=== PATIENT | female | born 1940 | race Caucasian/White ===

== ENCOUNTER 2018-09-12 11:19 | Inpatient (IN) ==
[2018-09-12] MEDS ORDERED: ZOFRAN IV ONE (11:42)
[2018-09-12] MEDS ORDERED: NS 1,000 ML IV ONE ×2 (11:42→16:53)
[2018-09-12] MEDS ORDERED: MORPHINE IV ONE (11:42)
[2018-09-12] MEDS ORDERED: MORPHINE ONE (11:44)
[2018-09-12] MEDS ORDERED: ZOFRAN ONE (11:44)
--- NOTE | 2018-09-12 12:45 | Diag Imaging Result Doc PS360 ---
EXAM: XRAY PELVIS W/HIP 2-3VW RT - 09/12/2018 HISTORY: fall TECHNIQUE: Right hip and pelvis three views COMPARISON: None. FINDINGS: There is an intertrochanteric fracture of the right femur with varus deformity. There is no other fracture or dislocation identified. IMPRESSION: Intertrochanteric fracture of right femur with varus deformity. Electronically signed by Neto Lund 09/12/2018 12:42 PM
--- NOTE | 2018-09-12 12:48 | Diag Imaging Result Doc PS360 ---
EXAM: CHEST-PORTABLE - 09/12/2018 HISTORY: hip fracture TECHNIQUE: Portable chest COMPARISON: 07/10/2018 FINDINGS: There is stable cardiomegaly. There is mild prominence of infrahilar markings on the left, but these could be exaggerated by mild skinfold artifact at the left base. The lungs otherwise appear clear. There is no pleural effusion or pneumothorax identified. IMPRESSION: Stable cardiomegaly. Mild prominence of left infrahilar markings. Electronically signed by Neto Lund 09/12/2018 12:46 PM
--- NOTE | 2018-09-12 13:12 | Diag Imaging Result Doc PS360 ---
EXAM: CT HEAD/C-SPINE W/O CONTRAST INDICATION: head injury/pain TECHNIQUE: This exam was performed using automated exposure control, adjustment of mA or kV according to patient size, and/or use of iterative reconstruction technique. COMPARISON: None. FINDINGS: Head: There is no definite acute infarct given the limited sensitivity of CT versus MRI. There is no discrete intracranial mass, mass effect, or intracranial hemorrhage. The surrounding soft tissues are essentially unremarkable. The calvaria is intact. C-spine: There is multilevel moderate to advanced facet arthropathy. There is milder endplate degenerative arthropathy at several levels. There is mild anterolisthesis of C4 on C5 related to facet arthropathy. Otherwise, there is no discrete fracture, acute subluxation, or intrinsic osseous lesion. There is a low dense right thyroid lobe nodule measuring 2.1 x 1.5 cm. Consider nonemergent follow-up with ultrasound. Surrounding soft tissues are essentially unremarkable, otherwise. IMPRESSION: 1.No evidence of acute intracranial pathology. 2.Multilevel degenerative arthropathy but no evidence of fracture or other definite acute C-spine injury. Electronically signed by Waylon Greene 09/12/2018 1:09 PM
[2018-09-12 13:50] LABS: BASO# 0.02 X1000 (0.0-0.2); BASO% 0.2 % (0.0-0.8); EOS# 0.04 X1000 (0.0-0.7); EOS% 0.5 % (0.0-10.0); HEMATOCRIT 36.8 % (37.0-47.0); HEMOGLOBIN 11.7 g/dL (12.0-16.0); IMM GRAN# 0.02 X1000 (0.0-0.04); IMM GRAN% 0.2 % (0.0-0.5); LYMPH# 0.73 X1000 (1.2-3.4); LYMPH% 8.7 % (20.5-51.1); MCH 30.6 PG (27-31); MCHC 31.8 g/dL (33-37); MCV 96.3 FL (81-99); MONO# 0.56 X1000 (0.11-0.59); MONO% 6.7 % (1.7-9.3); MPV 11.7 FL (7.4-10.4); NEUT# 7.04 X1000 (1.4-6.5); NEUT% 83.7 % (42.2-75.2); PLT 201 X1000 (130-400); RBC 3.82 XMIL (4.2-5.4); RDW 15.1 % (11.5-14.5); WBC 8.41 X1000 (4.8-10.8)
[2018-09-12 14:00] LABS: INR 1.75; PROTIME 21.8 Seconds (11.0-16.0)
[2018-09-12 14:01] LABS: PTT 37.8 Seconds (22.3-41.8)
[2018-09-12 14:02] LABS: URINE SOURCE CATH
[2018-09-12 14:07] LABS: BILIRUBIN URINE NEGATIVE (NEGATIVE); BLOOD URINE NEGATIVE (NEGATIVE); COLOR YELLOW; GLUCOSE URINE NEGATIVE (NEGATIVE); KETONE URINE NEGATIVE (NEGATIVE); LEUKOCYTES URINE NEGATIVE (NEGATIVE); NITRITE URINE NEGATIVE (NEGATIVE); PROTEIN URINE TRACE mg/dL (NEGATIVE); TURBIDITY URINE CLEAR (CLEAR); UR EPITHELIAL CELLS <10 /HPF (<10); URINE BACTERIA NEGATIVE /HPF; URINE RBC <10 /HPF (<10); URINE WBC <10 /HPF (<10); UROBILINOGEN URINE 2 mg/dL (NORMAL)
[2018-09-12] MEDS: MORPHINE IV PRN ×3 (14:11→18:19)
--- NOTE | 2018-09-12 14:36 | EKG Report ---
Test Performed on : 09/12/2018 1:58:51 PM Test Reason : pre-op hip fracture Blood Pressure : / mmHG Vent. Rate : 059 BPM Atrial Rate : 059 BPM P-R Int : 178 ms QRS Dur : 092 ms QT Int : 444 ms P-R-T Axes : -03 -15 027 degrees QTc Int : 439 ms Sinus bradycardia. with premature atrial complexes. Nonspecific ST abnormality Abnormal ECG When compared with ECG of 16-JUL-2014 21:19, premature atrial complexes. are now present Nonspecific T wave abnormality has replaced inverted T waves in Inferior leads T wave inversion no longer evident in Anterior leads T wave amplitude has decreased in Lateral leads Unconfirmed Result
[2018-09-12 14:48] LABS: ALB/GLOB RATIO 1.4; ALBUMIN 3.9 g/dL (3.5-5.0); CALCIUM 9.4 mg/dL (8.8-10.2); MAGNESIUM 2.1 mg/dL (1.5-2.7); POTASSIUM 4.2 mmol/L (3.5-5.1); TOTAL BILIRUBIN 0.5 mg/dL (0.20-1.00); TOTAL PROTEIN 6.6 g/dL (6.3-8.3)
--- NOTE | 2018-09-12 14:51 | PROVIDER DOCUMENTATION ---
This chart was entered by Paz Greene Scribe, acting as scribe for José Luis Alfred MD. 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 pt fell 2 wks ago on bilat arms but didn't receive tx. pt denies illness and loc. pt has hx of afib and takes elaquis. pt followed by Dr. Orta, Dr. Corrigan, and Dr. Pan. Quality of Pain: reports: aching Severity in ED: mild Onset/Duration: just prior to arrival Timing: still present Any recent injury?: Yes (fell 2 wks ago ) Locality of Occurance: Other (daughters house) - FALL INJURY Location of Pain/Injury: reports: lower body (rt hip) Review of Systems - Adult - REVIEW OF SYSTEMS - ADULT Constitutional: reports: no symptoms reported. denies: fever, fatique, night sweats Eyes: reports: no symptoms reported Ears, Nose, Mouth & Throat: reports: no symptoms reported Cardiovascular: reports: no symptoms reported. denies: chest pain, poor circulation, syncope Respiratory: reports: no symptoms reported. denies: pleurisy, shortness of breath, wheezing Gastrointestinal: reports: no symptoms reported. denies: abdominal pain, diarrhea, nausea, vomiting Genitourinary: reports: no symptoms reported Musculoskeletal: reports: see HPI, joint pain (rt hip). 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 denies: dizziness/vertigo, headache/migraines, syncope Psychiatric: reports: no symptoms reported Endocrine: reports: no symptoms reported Hematologic/Lymphatic: reports: no symptoms reported Allergic/Immunologic: reports: no symptoms reported All Other Systems: Reviewed and Negative Past History - Adult - PAST MEDICAL HISTORY-ADULT Review of Records: reports: Old Records Reviewed, Nursing Assessment Review, Medications Reviewed, Social history reviewed & non-contributory. Major Childhood Illnesses: reports: denies history Cardiovascular: reports: congenital heart disease (atrial defect), HTN Respiratory: reports: denies history Gastrointestinal: reports: GERD Obstetrical/Gynecological: reports: denies history Genitourinary: reports: kidney disease (CRI) Musculoskeletal: reports: arthritis Neurological: reports: denies history Endocrine/Immune: reports: denies history Other Conditions: reports: denies history - PRIOR SURGERIES/PROCEDURES Surgical/Procedure History: reports: EGD, joint replacement - IMMUNIZATION STATUS Childhood Immunizations: See Nurse Assessment Flu Vaccine: See Nurse Assessment - FAMILY HISTORY Family History: reviewed, not pertinent - SOCIAL HISTORY Smoking: non-smoker Substance Use: none/never Physical Exam-Injury Related - Physical Exam-Injury Related Initial Vital Signs Reviewed: Yes General Appearance: appears well, alert, mild distress. negative: slow to respond, obtunded, combative Immobilization?: negative: backboard, C-collar Eyes: PERRL/EOMI, pink conjunctivae Head, Ears, Nose, Mouth & Throat: normocephalic/atraumatic, moist mucous membranes, normal ENT inspection Neck: non-tender, full range of motion, supple, normal inspection Respiratory: chest non-tender, lungs clear, normal breath sounds Cardiovascular: normal peripheral pulses, regular rate, rhythm Chest/Breast: deferred Peripheral Pulses: radial (R): 2+, radial (L): 2+ Abdominal Exam: normal bowel sounds, non tender, soft Female Genitalia/Pelvic Exam: deferred Rectal Exam: deferred Hemoccult Exam: deferred Lymphatic: no adenopathy Back Exam: normal inspection, no CVA tenderness, no vertebral tenderness. negative: CVA tenderness, decreased range of motion, ecchymosis Extremity: tenderness (rt hip), other (pt resists rt hip movement.). negative: normal range of motion, non-tender, deformity, erythema, inflammation Integumentary: normal color, warm/dry, other (pt has older bilat forearm and wrist bruising). negative: swelling, tenderness, warm, abrasion, laceration Neurologic: grossly normal, no motor/sensory deficits Psych/Mental Status: normal mood/affect, normal thought content, normal thought process, oriented x 3 - Glascow Coma Score Best Eye Response ([place]): (4) open spontaneously Best Verbal Response ([place]): (5) oriented Best Motor Response ([place]): (6) obeys commands Thao Total: 15 Progress - PLAN OF CARE/RESULTS Progress/Plan/Lab Results: Vital Signs - 8 hr 09/12/18 12:02 Temperature 97.8 F Pulse Rate 63 Respiratory Rate 20 Blood Pressure 147/67 O2 Sat by Pulse Oximetry 99 Laboratory Results - last 24 hr 09/12/18 09/12/18 09/12/18 13:07 13:07 13:53 WBC 8.41 RBC 3.82 L Hgb 11.7 L Hct 36.8 L MCV 96.3 MCH 30.6 MCHC 31.8 L RDW Std Deviation 15.1 H Plt Count 201 MPV 11.7 H Immature Gran % (Auto) 0.2 Neut % (Auto) 83.7 H Lymph % (Auto) 8.7 L [place] % (Auto) 6.7 Eos % (Auto) 0.5 Baso % (Auto) 0.2 Immature Gran # (Auto) 0.02 Neut # (Auto) 7.04 H Lymph # (Auto) 0.73 L [place] # (Auto) 0.56 Eos # (Auto) 0.04 Baso # (Auto) 0.02 PT 21.8 H INR 1.75 PTT (Actin FS) 37.8 Sodium Potassium Chloride Carbon Dioxide Anion Gap BUN Creatinine Estimated GFR/1.73 m2 BUN/Creatinine Ratio Glucose Calculated Osmolality Calcium Magnesium Total Bilirubin AST ALT Alkaline Phosphatase Creatine Kinase Total Protein Albumin Globulin Albumin/Globulin Ratio Lipase Urine Source CATH Urine Color YELLOW Urine Turbidity CLEAR Urine pH 5.0 Ur Specific [place] 1.020 Urine Protein TRACE A Ur Glucose (Stick) NEGATIVE Ur Ketones (Stick) NEGATIVE Urine Blood NEGATIVE Urine Nitrite NEGATIVE Urine Bilirubin NEGATIVE Urobilinogen Dipstick 2 A Urine Leukocytes NEGATIVE Urine WBC (Auto) <10 Urine RBC (Auto) <10 U Epithel Cells (Auto) <10 Urine Bacteria (Auto) NEGATIVE 09/12/18 14:11 WBC RBC Hgb Hct MCV MCH MCHC RDW Std Deviation Plt Count MPV Immature Gran % (Auto) Neut % (Auto) Lymph % (Auto) [place] % (Auto) Eos % (Auto) Baso % (Auto) Immature Gran # (Auto) Neut # (Auto) Lymph # (Auto) [place] # (Auto) Eos # (Auto) Baso # (Auto) PT INR PTT (Actin FS) Sodium 141 Potassium 4.2 Chloride 107 Carbon Dioxide 23 L Anion Gap 11 BUN 22 Creatinine 1.0 H Estimated GFR/1.73 m2 54 BUN/Creatinine Ratio 22 Glucose 123 H Calculated Osmolality 286 Calcium 9.4 Magnesium 2.1 Total Bilirubin 0.50 AST 15 ALT 15 Alkaline Phosphatase 55 Creatine Kinase 39 Total Protein 6.6 Albumin 3.9 Globulin 2.7 Albumin/Globulin Ratio 1.4 Lipase 187 H Urine Source Urine Color Urine Turbidity Urine pH Ur Specific [place] Urine Protein Ur Glucose (Stick) Ur Ketones (Stick) Urine Blood Urine Nitrite Urine Bilirubin Urobilinogen Dipstick Urine Leukocytes Urine WBC (Auto) Urine RBC (Auto) U Epithel Cells (Auto) Urine Bacteria (Auto) Orders Category Date Time Status [place] Insertion ORDERED Care 09/12/18 11:42 Active Nursing- Obtain EKG once Care 09/12/18 11:42 Active Saline Loc NOW Care 09/12/18 11:42 Active cardiac diet [Heart Healthy Diet] Diet 09/12/18 13:06 Active CHEST-PORTABLE [RAD] Stat Exams 09/12/18 11:[address] HEAD/C-SPINE W/O CONTRAST [CT] Stat Exams 09/12/18 11:43 Completed XRAY PELVIS W/HIP 2-3VW RT [RAD] Stat Exams 09/12/18 11:44 Completed CBC WITH ELECTRONIC DIFF [HEME] Stat Lab 09/12/18 13:07 Completed CK PROFILE [SP CHEM] Stat Lab 09/12/18 14:11 Completed COMPREHENSIVE METABOLIC PANEL [CHEM] Stat Lab 09/12/18 14:11 Completed LIPASE [CHEM] Stat Lab 09/12/18 14:11 Completed MAGNESIUM [CHEM] Stat Lab 09/12/18 14:11 Completed PRO B-NATRIURETIC PEPTIDE Stat Lab 09/12/18 14:11 Received PROTIME WITH INR [COAG] Stat Lab 09/12/18 13:07 Completed PTT [COAG] Stat Lab 09/12/18 13:07 Completed TROPONIN T Stat Lab 09/12/18 14:11 Received TYPE & SCREEN [BBK] Stat Lab 09/12/18 13:07 Received URINALYSIS W/POSS RFLX CULT [URINALYSIS] Stat Lab 09/12/18 13:53 Completed 0.9% Sodium Chloride Inj [Ns] 1,000 ml Med 09/12/18 11:42 Active IV 75 mls/hr Morphine Med 09/12/18 13:06 Active 2 mg IV Q2H PRN PRN Morphine Med 09/12/18 11:44 Discontinued 4 mg .ROUTE .STK-MED ONE Morphine Med 09/12/18 11:42 Discontinued 4 mg IV NOW ONE Ondansetron [Zofran] Med 09/12/18 11:44 Discontinued 4 mg .ROUTE .STK-MED ONE Ondansetron [Zofran] Med 09/12/18 11:42 Discontinued 4 mg IV NOW ONE EKG [EKG] Stat Ther 09/12/18 11:42 Draft Result Diagrams: 09/12/18 13:07 09/12/18 14:11 - REASSESSMENT Reassessment #1 Time Reassessed: 13:07 Status: improving (less pain with morphine. X-Ray results discussed. Will admit to hospitalist once labs are resulted.) - EKG 1 Time of EKG reading by physician:: 14:28 EKG Read and Signed by:: José Luis Alfred EKG Interpretation (*Must complete 3 of following elements*): Abnormal Rate: 59 Rhythm: NSR, bradycardic [place]: left QRS: other (early transition) [place] Interval: normal ST Wave: non-specific ST changes - XRAY 1 XRAY: Right XRAY Study: Pelvis, Hip ( EXAM: XRAY PELVIS W/HIP 2-3VW RT - 09/12/2018 HISTORY: fall TECHNIQUE: Right hip and pelvis three views COMPARISON: None. FINDINGS: There is an intertrochanteric fracture of the right femur with varus deformity. There is no other fracture or dislocation identified. IMPRESSION: Intertrochanteric fracture of right femur with varus deformity. Electronically signed by [employer] 09/12/2018 12:42 PM) Impression: Abnormal Comparison with other Films: no prior study 2 XRAY: Bilateral XRAY Study: Chest ( EXAM: CHEST-PORTABLE - 09/12/2018 HISTORY: hip fracture TECHNIQUE: Portable chest COMPARISON: 07/10/2018 FINDINGS: There is stable cardiomegaly. There is mild prominence of infrahilar markings on the left, but these could be exaggerated by mild skinfold artifact at the left base. The lungs otherwise appear clear. There is no pleural effusion or pneumothorax identified. IMPRESSION: Stable cardiomegaly. Mild prominence of left infrahilar markings. Electronically signed by [employer] 09/12/2018 12:46 PM) Impression: Abnormal Comparison with other Films: no changes - CONSULTS/PCP/HOSPITALIST Notification #1 *Consult/PCP/Hospitalist*: Dr. almendarez Time Discussed: 13:03 Reason/Comments: Dr. almendarez can't operate on pt until saturday due to pt on elaquis #2 Consult: ALBERTA Olvera Time Discussed: 14:51 (admit Alvarez) Consult Disposition: Will see in ED, Admit Departure - Departure Date of Disposition Decision: 09/12/18 Time of Disposition Decision: 14:51 DIAGNOSIS: Anticoagulant long-term use Closed intertrochanteric fracture of right femur Qualifiers: Encounter type: initial encounter Fracture alignment: displaced Qualified Code(s): S72.141A - Displaced intertrochanteric fracture of right femur, initial encounter for closed fracture Fall as cause of accidental injury at home as place of occurrence Qualifiers: Encounter type: initial encounter Qualified Code(s): W19.XXXA - Unspecified fall, initial encounter; Y92.009 - Unspecified place in unspecified non-institutional (private) residence as the place of occurrence of the external cause Disposition: ADMITTED INPATIENT 09 Certified Medical Emergency: Emergent Condition: Fair Referrals and Follow-Ups: Heather Orta MD [Primary Care Provider] - - Critical Care Note This patient required my direct & personal management of CC.: No Attestation - Physician/ SHARRON Attestation Patient care was provided by Advanced Practice Provider:: No The physician spent face to face time with patient:: Yes Advanced Practice Provider documentation review:: Supervising physician onsite and consulted in the evaluation and care of this patient. The physician did have a face to face encounter with the patient. This chart was documented by the indicated scribe, (Paz Greene Scribe) and accurately reflects the services I performed and decisions made by me, José Luis Alfred MD, as attested by the provider's signature.
--- NOTE | 2018-09-12 15:53 | HISTORY AND PHYSICAL ---
PRIMARY CARE PHYSICIAN: Dr. Heather Orta. CHIEF COMPLAINT: Right hip pain after a fall at home. HISTORY OF PRESENTING ILLNESS: This is a 78-year-old female who presents to [facility] with complaints of right hip pain after she tripped over a couch at her daughter's house. She also fell approximately 2 weeks ago on bilateral arms, but did not receive any treatment. Workup in the emergency room showed a right hip and pelvic x-ray with an intertrochanteric fracture of the right femur with varus deformity. Chest x-ray showed stable cardiomegaly, mild prominence of left infrahilar markings. CT of the head and cervical spine showed no evidence of acute intracranial pathology and multilevel degenerative arthropathy, but no evidence of acute fracture or other definite C-spine injury. So, she will be admitted for further evaluation and treatment. It is noted that she is on Eliquis for atrial fibrillation and we will hold that and consult Orthopedics. PAST MEDICAL HISTORY: Hypertension, congenital heart disease with an atrial defect, GERD, chronic kidney disease and arthritis. PAST SURGICAL HISTORY: An EGD and a joint replacement. FAMILY HISTORY: Reviewed and noncontributory. SOCIAL HISTORY: She currently lives with family. Denied any tobacco, alcohol or illicit drug use. ALLERGIES: Codeine. HOME MEDICATIONS: She takes Cordarone 200 mg p.o. daily, Norvasc 10 mg p.o. daily, Prinivil 20 mg p.o. daily, pravastatin 20 mg p.o. at bedtime, and we will hold her Eliquis 5 mg p.o. b.i.d. LABORATORY DATA: Showed a white blood cell count of 8.41, hemoglobin 11.7, hematocrit 36.8, platelets 201,000. PT and INR of 21.8 and 1.75. Sodium 141, potassium 4.2 chloride 107, CO2 23, BUN of 22, creatinine 1, magnesium 2.1, lipase 187. Urinalysis negative. Right hip and pelvic three-view x-ray showed an intertrochanteric fracture of the right femur with varus deformity. Head and cervical spine CT showed no evidence of acute intracranial pathology. Multilevel degenerative arthropathy, but no evidence of fracture or other definite acute cervical spine injury. Chest x-ray shows stable cardiomegaly. Mild prominence of left infrahilar markings. EKG showed sinus bradycardia with premature atrial complexes at 59. REVIEW OF SYSTEMS: She denied any fever, chills, blurred vision, dizziness. She denied any chest pain, coughing, shortness of breath. She denied any abdominal pain, constipation, diarrhea, burning or hurting with urination. She is positive for right hip pain status post her fall. PHYSICAL EXAMINATION: VITAL SIGNS: On arrival, she had a temperature of 97.8, pulse 63, respirations 20, blood pressure 147/67. Satting 99% on room air. GENERAL: This is a 78-year-old female who is lying in the bed. Answers questions appropriately. HEENT: Normocephalic, atraumatic. Normal ENT inspection. Oropharynx and nares are clear. EYES: Pupils are equal, round and reactive to light and accommodation. Extraocular movements are intact. NECK: Normal inspection. Normal range of motion. LUNGS: Clear to auscultation bilaterally with equal lung expansion and chest wall movement. HEART: With regular rate and rhythm. No murmurs, rubs or gallops. ABDOMEN: Soft, nontender, nondistended. Bowel sounds are present x 4 quadrants. MUSCULOSKELETAL: She had 5/5 strength to bilateral upper extremities and her left lower extremity unable to move her right extremity at this time due to her right hip fracture. NEUROLOGIC: The cranial nerves 2-12 appear grossly intact. ASSESSMENT: 1. Right intertrochanteric hip fracture. 2. Hypertension. 3. Gastroesophageal reflux disease. 4. An elevated lipase. PLAN: She is being admitted to the surgical unit, placed on telemetry, consulting Ortho. Again, will hold her Eliquis for her upcoming surgery. Placed on telemetry. Morphine 2 mg IV q.2 hours p.r.n. Continue her other home medications as previously identified. Will check a CBC and a BMP. I think the elevated lipase is an incidental finding, but I am going to discuss that with Attending for further recommendations. Dictated by ALBERTA Morrison for Lee Lerma MD cc: ALBERTA Morrison MD Marlin D. Gill, MD
[2018-09-12] MEDS: ZOFRAN IV PRN ×2 (17:14→22:19)
--- NOTE | 2018-09-12 18:12 | HISTORY AND PHYSICAL ---
This is a [id number] encounter note with May Champagne. Patient fell at home. She did not pass out. She is a 78-year-old female with history of hypertension, dyslipidemia, atrial fibrillation. She is on Eliquis chronically. She even took her dose this morning. She fell, sustained injury to her right hip, right hip on exam is externally rotated and foreshortened consistent with a right hip fracture. Her x-ray shows a right hip fracture looks like displaced intertrochanteric fracture of the right femur. The patient will be admitted for right hip fracture. Dr. Medina was consulted and because of her Eliquis that will delay surgery at least for a couple days. We will continue to follow. DISPOSITION: Pending her clinical status. She does have a mild elevation in her lipase. Denies abdominal pain, liver issues. She is on amiodarone and pravastatin. We will monitor labs and check an ultrasound and follow. cc: Heather Orta MD
[2018-09-12] MEDS: TYLENOL PO PRN (22:16)
[2018-09-12] MEDS: PRAVACHOL PO SCH (22:16)
[2018-09-13] MEDS: MORPHINE IV PRN ×3 (04:20→22:12)
[2018-09-13] MEDS: ZOFRAN IV PRN ×2 (04:20→22:11)
[2018-09-13 06:14] LABS: BASO# 0.01 X1000 (0.0-0.2); BASO% 0.1 % (0.0-0.8); EOS# 0.09 X1000 (0.0-0.7); EOS% 1.2 % (0.0-10.0); HEMATOCRIT 35.4 % (37.0-47.0); HEMOGLOBIN 10.9 g/dL (12.0-16.0); IMM GRAN# 0.02 X1000 (0.0-0.04); IMM GRAN% 0.3 % (0.0-0.5); LYMPH# 0.72 X1000 (1.2-3.4); LYMPH% 9.4 % (20.5-51.1); MCH 30.2 PG (27-31); MCHC 30.8 g/dL (33-37); MCV 98.1 FL (81-99); MONO# 0.89 X1000 (0.11-0.59); MONO% 11.7 % (1.7-9.3); MPV 10.6 FL (7.4-10.4); NEUT% 77.3 % (42.2-75.2); PLT 224 X1000 (130-400); RBC 3.61 XMIL (4.2-5.4); RDW 15.2 % (11.5-14.5); WBC 7.63 X1000 (4.8-10.8)
[2018-09-13 06:38] LABS: ALB/GLOB RATIO 1.5; ALBUMIN 3.8 g/dL (3.5-5.0); AMYLASE 929 U/L (20-200); CALCIUM 9.2 mg/dL (8.8-10.2); DIRECT BILIRUBIN 0.1 mg/dL (0.00-0.20); POTASSIUM 4.4 mmol/L (3.5-5.1); TOTAL BILIRUBIN 0.64 mg/dL (0.20-1.00); TOTAL PROTEIN 6.4 g/dL (6.3-8.3)
[2018-09-13 06:50] LABS: LIPASE 841 U/L (13-60)
--- NOTE | 2018-09-13 07:12 | ORTHOPAEDICS CONSULTATION ---
DATE: 09/13/2018 CHIEF COMPLAINT: Hip pain. HISTORY OF PRESENT ILLNESS: Ms. Roseline Kirk is a 78-year-old female, who presented to the emergency department yesterday. She was diagnosed with a right intertrochanteric hip fracture. She was admitted per the hospitalist service. She unfortunately fell yesterday and was unable to bear weight on the right lower extremity. Most of her pain is at the hip, does tend to radiate down the leg a little bit. She denies any pain in bilateral upper extremities or the left lower extremity. PAST MEDICAL HISTORY: Hypertension. Reflux. Kidney disease. PAST SURGICAL HISTORY: EGD. FAMILY HISTORY: Negative for any anesthesia related events. SOCIAL HISTORY: She lives with her family. She denies alcohol or tobacco use. ALLERGIES: Codeine. MEDICATIONS: Per the medical record. REVIEW OF SYSTEMS: Positive for this right hip pain. All other systems are essentially negative. PHYSICAL EXAMINATION: General: An elderly female lying in bed. She is in no acute distress this morning. HEENT/Neck: Normocephalic, atraumatic. Respirations: Nonlabored breathing. Cardiovascular: Regular pulse. Abdomen: Nondistended. Extremities: Right lower extremity exam, she has tenderness to palpation of the right hip. The right hip was marked as the correct surgical site. She has good dorsiflexion and plantarflexion of the toes. She has good sensation to light touch to the toes and good capillary refill to all the toes. RADIOGRAPHS: Several views of the right hip were reviewed, which show a right intertrochanteric hip fracture with a little bit of displacement. ASSESSMENT: Right intertrochanteric hip fracture. PLAN: I discussed with Ms. Kirk today about surgical intervention. She is NPO. We will plan on doing a right trochanteric femoral nail. I went over with her the procedure, risks, benefits, and potential complications. Risks include, but are not limited to infection, wound healing problems, damage to nerves, arteries, veins, numbness, malunion, nonunion, hardware related issues, continued pain, DVT, and anesthesia related risks. After discussing these with the patient, she expressed understanding and wished to proceed. She is on Eliquis and has been off for a day now. Since this is going to be more of a small incision surgery, I think it is okay to go ahead and go today, and we can watch her hemoglobin and hematocrit postoperatively. All questions were answered. cc: Frankie Medina MD
[2018-09-13] MEDS ORDERED: DIPRIVAN 1% ONE (08:50)
[2018-09-13] MEDS ORDERED: XYLOCAINE-MPF 2% ONE (08:50)
[2018-09-13] MEDS ORDERED: FENTANYL ONE (08:51)
[2018-09-13] MEDS ORDERED: KEFZOL 1 GM/D5W 2 GM/100 ML IVPB ONE (09:13)
[2018-09-13] MEDS ORDERED: OFIRMEV 1000 MG/ISOTONIC SOLN 1,000 MG/100 ML BOTTLE ONE (09:35)
[2018-09-13] MEDS ORDERED: EPHEDRINE ONE (09:37)
[2018-09-13] MEDS ORDERED: ROBINUL ONE (09:52)
[2018-09-13] MEDS ORDERED: ZOFRAN ONE (09:52)
[2018-09-13] MEDS ORDERED: MILK OF MAGNESIA PO PRN (10:13)
[2018-09-13] MEDS: NORVASC PO SCH (11:30)
[2018-09-13] MEDS: PRINIVIL PO SCH (11:30)
[2018-09-13] MEDS: CORDARONE PO SCH (11:30)
--- NOTE | 2018-09-13 14:28 | Diag Imaging Result Doc PS360 ---
EXAM: US GB < RUQ (LIMITED) INDICATION: elevated lipase COMPARISON: None. FINDINGS: The gallbladder appears normal with no stones, wall thickening, or pericholecystic fluid. The common bile duct is normal in diameter. Sonographic Parry's sign was reported to be negative. The liver is grossly unremarkable. Portal venous flow is hepatopetal. The pancreas is partially obscured. The visualized portion is grossly unremarkable. The aorta and IVC are grossly unremarkable. The right kidney is grossly unremarkable. IMPRESSION: Essentially unremarkable right upper quadrant abdominal ultrasound. Electronically signed by Waylon Greene 09/13/2018 2:26 PM
--- NOTE | 2018-09-13 15:47 | OPERATIVE NOTE ---
PROCEDURE DATE: 09/13/2018 PREOPERATIVE DIAGNOSIS: Right intertrochanteric hip fracture. POSTOPERATIVE DIAGNOSIS: Right intertrochanteric hip fracture. PROCEDURE: Right trochanteric femoral nailing. SURGEON: Dr. Frankie Medina. DIP GUIDER STOVES: None. ANESTHESIA: General. ESTIMATED BLOOD LOSS: 200 mL. IMPLANTS: Synthes 11 x 360 femoral nail. DISPOSITION: To PACU, hemodynamically stable. INDICATIONS FOR PROCEDURE: Ms. Kirk is a 78-year-old female, who fell and broke this hip. She was admitted per the hospitalist service. I discussed with her and her family about operative intervention. They expressed understanding and wished to proceed. DESCRIPTION OF PROCEDURE: Ms. Greene was identified in the preoperative holding area. The right hip was marked as the correct surgical site. She was then wheeled to the operating room, placed supine on the operating table. All bony prominences well padded. She was induced under general anesthesia. LMA was placed. She was then placed in the traction bed. Some traction was pulled across that right lower extremity. Right lower extremity was then prepped with chlorhexidine gluconate scrub and then ChloraPrep, and draped in normal sterile fashion. Surgical pause was performed. We identified the correct patient, correct side, and the correct procedure. Preop antibiotics were given. Fluoroscopic imaging was used which showed she did have some comminution right at that basicervical intertrochanteric area. I did some closed reduction attempts to get that better. We did get a little bit better alignment. I then made an incision just superior to the greater trochanter. Dissection was carried down to deep fascia. I got my starting point with my guidewire. I then used the opening reamer to open up the proximal femur. I was able to get a ball-tip guidewire down. We measured a 360 nail. I then reamed to a size 12 reamer. I then placed an 11 x 360 nail down. I then made a small incision on the lateral aspect of her thigh. I got my position for the guidewire. I was able to get it up the center of the head. After I confirmed that with fluoroscopic imaging, I then drilled it and put a 95 helical blade up. I then removed the outrigger guide after I had locked the nail to the blade. Final images were taken which showed we had good reduction of our fracture in both AP and lateral views; good position of our hardware as well. I then closed both incisions. I closed the deep layer with 0 Vicryl, 2-0 Vicryl for the subcutaneous and angel on the skin. Adaptic, 4 x 4s, ABDs, and Island dressings were applied. She was then wheeled from general anesthesia, moved to her own bed, and taken to PACU in stable condition. PLAN: Postop she will be weight bear as tolerated, right lower extremity. She will start working with therapy tomorrow. We will watch her blood levels. cc: Frankie Medina MD
[2018-09-13] MEDS ORDERED: PAXIL PO PRN (16:44)
[2018-09-13] MEDS: KEFZOL 1 GM/D5W 1 GM/50 ML IVPB IV SCH (17:22)
[2018-09-13] MEDS: OXY IR PO PRN (17:23)
--- NOTE | 2018-09-13 19:05 | PROGRESS NOTE ---
DATE: 09/13/2018 IDENTIFYING DATA: She is a 78-year-old female, presenting with a hip fracture. SUBJECTIVE: She is seen postoperatively. She looks pretty well. OBJECTIVE: Vital Signs: Blood pressure is 109/51, heart rate 61, respiratory 16, temperature was 98.2. Cardiovascular: Regular rate and rhythm. Pulmonary: Bilateral breath sounds, clear to auscultation. GI: Soft, nontender, nondistended. Bowel sounds are positive. LABORATORY DATA: White count 7, hemoglobin and hematocrit 10 and 35, platelets 224. BUN and creatinine 26 and 1. Her amylase and lipase though, have climbed to 841 and 929, but she has no abdominal pain. She has no right upper quadrant tenderness. She has no nausea, vomiting. Really not sure what cause of this lipasemia is unless it is just possibly n.p.o. status. PROBLEM LIST: 1. Hip fracture. She has a right intertrochanteric hip fracture. Dr. Medina has already operated on her and we will continue to follow. Resume anticoagulation per his recommendations. I would put her back on her Eliquis instead of the usual Xarelto at his discretion. 2. Atrial fibrillation. Appears to be rate controlled. She is on amiodarone. Continue to follow. 3. Elevated lipase. Lipasemia. She has diagnostic criteria for pancreatitis but she is asymptomatic. She is asymptomatic but it is very unclear why these levels are rising unless it has to do with her n.p.o. status or perhaps medication. Her right upper quadrant ultrasound is negative. I have ordered a CT for tomorrow just to get a better idea of what is going on. If that is negative, I think we just have to monitor it and watch for symptoms versus chasing it down too directly. cc: Lee Lerma MD [facility]
[2018-09-13] MEDS: PRAVACHOL PO SCH (22:01)
[2018-09-13] MEDS: PERIDEX MT SCH (22:01)
[2018-09-13] MEDS: COLACE PO SCH (22:02)
[2018-09-14] MEDS: OXY IR PO PRN ×3 (05:11→14:15)
[2018-09-14] MEDS: ZOFRAN IV PRN (05:13)
[2018-09-14] MEDS: KEFZOL 1 GM/D5W 1 GM/50 ML IVPB IV SCH ×2 (05:19→12:47)
[2018-09-14] MEDS: MORPHINE IV PRN (06:21)
[2018-09-14 06:25] LABS: BASO# 0.02 X1000 (0.0-0.2); BASO% 0.2 % (0.0-0.8); EOS# 0.08 X1000 (0.0-0.7); EOS% 0.9 % (0.0-10.0); HEMATOCRIT 29.9 % (37.0-47.0); HEMOGLOBIN 9.3 g/dL (12.0-16.0); LYMPH# 0.51 X1000 (1.2-3.4); LYMPH% 5.4 % (20.5-51.1); MCH 30.5 PG (27-31); MCHC 31.1 g/dL (33-37); MONO# 1.02 X1000 (0.11-0.59); MONO% 10.9 % (1.7-9.3); MPV 11.5 FL (7.4-10.4); NEUT# 7.75 X1000 (1.4-6.5); NEUT% 82.6 % (42.2-75.2); PLT 197 X1000 (130-400); RBC 3.05 XMIL (4.2-5.4); WBC 9.38 X1000 (4.8-10.8)
[2018-09-14 06:54] LABS: ALB/GLOB RATIO 1.3; ALBUMIN 3.2 g/dL (3.5-5.0); DIRECT BILIRUBIN 0.2 mg/dL (0.00-0.20); TOTAL BILIRUBIN 0.74 mg/dL (0.20-1.00); TOTAL PROTEIN 5.6 g/dL (6.3-8.3)
[2018-09-14 07:16] LABS: CALCIUM 8.8 mg/dL (8.8-10.2); POTASSIUM 4.6 mmol/L (3.5-5.1)
--- NOTE | 2018-09-14 07:42 | ORTHOPAEDICS PROGRESS NOTE ---
DATE: 09/14/2018 SUBJECTIVE: Ms. Kirk was lying in bed this morning and overall feeling pretty good. She had a good night's rest. OBJECTIVE: On right lower extremity exam, her dressing is clean, dry, and intact. She is moving the foot at her baseline. ASSESSMENT: Status post right trochanteric femoral nailing. PLAN: Ms. Kirk is going to be up out of bed today. Physical therapy to start working with her. She can put full weight on this right lower extremity. We will continue to follow. cc: Frankie Medina MD
--- NOTE | 2018-09-14 09:44 | Diag Imaging Result Doc PS360 ---
EXAM: CT ABD/PELVIS W/PO AND IV CON INDICATION: pancreatitis TECHNIQUE: This exam was performed using automated exposure control, adjustment of mA or kV according to patient size, and/or use of iterative reconstruction technique. COMPARISON: None. FINDINGS: There are trace bilateral pleural effusions and mild bibasilar atelectasis. There is a trace pericardial effusion and cardiomegaly. There is mild intrahepatic periportal edema, which is likely related to congestive heart failure. There are several tiny hypodense cystic appearing foci associated with the liver. The liver is unremarkable, otherwise. There is trace ascites tracking around the liver and in the right upper quadrant. The gallbladder is distended. The gallbladder contains hyperdense sludge versus vicarious excretion of contrast if there has been a contrast-enhanced study in the past few days. There is a small amount of fluid around the gallbladder. However, this may simply be the trace ascites. Although there is a small amount of fluid near the pancreas, and is not clearly emanate from it and it is possible that it is simply be adjacent trace ascites. In the right clinical scenario I suppose pancreatitis is possible. There is no evidence of peripancreatic abscess. There are a few parapelvic cysts associated with the left kidney and a small cyst at the lower pole of the left kidney. The kidneys are unremarkable, otherwise. There is a small amount of gas in the urinary bladder lumen that may have been from recent catheterization. There is no urinary bladder wall thickening. The reproductive tract is grossly unremarkable as imaged. There is mild uncomplicated diverticulosis coli. There is moderate gaseous distention of the transverse colon. There is no focal bowel wall thickening or evidence of bowel obstruction. The stomach is moderately distended. The remainder of the GI tract is essentially unremarkable. There has been prior ORIF at the right hip. There is moderate spondylosis. There is moderate body wall anasarca. IMPRESSION: 1.Cardiomegaly with a trace pericardial effusion. 2.Trace bilateral pleural effusions and bibasilar atelectasis. 3.Intrahepatic periportal edema edema likely related to congestive heart failure. 4.Trace ascites in the upper abdomen and tracking around the liver. 5.Gallbladder distention with hyperdense material in the lumen of the gallbladder suggesting sludge. 6.Although there is a small amount of fluid near the pancreas, this may simply be the trace ascites as it does not clearly emanate from the pancreas. In the right clinical scenario, a component of pancreatitis could be possible, however. 7.Nonspecific moderate distention of the transverse colon and stomach. No obstructive bowel pattern. 8.Moderate body wall anasarca. Electronically signed by Waylon Greene 09/14/2018 9:41 AM
[2018-09-14] MEDS: CORDARONE PO SCH (09:58)
[2018-09-14] MEDS: PRINIVIL PO SCH (09:58)
[2018-09-14] MEDS: NORVASC PO SCH (09:58)
[2018-09-14] MEDS: FERROUS SULFATE PO SCH (09:58)
[2018-09-14] MEDS: PERIDEX MT SCH ×2 (09:59→22:37)
--- NOTE | 2018-09-14 17:41 | PROGRESS NOTE ---
DATE: 09/14/2018 SUBJECTIVE: Patient has no major complaints. OBJECTIVE: Blood pressure is 103/47, heart rate 56, respiratory 16, temperature 97.7 degrees, 91% on nasal cannula. I am not entirely sure she may not have some heart failure. Her imaging really is suspicious for that but in any case.Cardiovascular: Regular rate and rhythm. Pulmonary: Bilateral breath sounds, diminished at the bases. GI: Was soft, nontender, nondistended. Bowel sounds are positive. Extremities: No clubbing or cyanosis. Lymphatic: No peripheral edema. Neurological: Nonfocal. LABORATORY DATA: White count 9, hemoglobin and hematocrit 9 and 29, platelets 197,000. BUN and creatinine are 28 and 1, albumin 3.2, lipase is down to 127. PROBLEM LIST: 1. Right intertrochanteric hip fracture status post open reduction internal fixation, Dr. Medina is following, resume Eliquis per his discretion. 2. Atrial fibrillation appears to be rate controlled. She is on amiodarone. She is anticoagulated. 3. Lipasemia really unclear etiology. She does look like she has biliary dyskinesia. Her CT which is usually not as revealing for gallbladder disease shows distention and gallbladder sludge whereas her ultrasound was negative. She also has some edema in her head of her pancreas and periportal edema suspicious for possible portal hypertension but in any case, we will attempt to use diuretics and see how she does. I do think she has abnormal gallbladder which is next problem. 4. Biliary dyskinesia. I do not think she is ready for surgery at this point but we will get surgical evaluation, that may need to be taken out on down the line but she is asymptomatic despite having evidence of lipasemia and pancreatitis per imaging. She has no abdominal pain, no nausea, vomiting. 5. Volume overload. I am not quite sure why she has so much fluid on board but she has anasarca and various issues. Will evaluate her for heart failure and continue her medications and institute some Lasix and follow. cc: Lee Lerma MD
[2018-09-14] MEDS: LASIX IV SCH (17:42)
--- NOTE | 2018-09-14 19:22 | GENERAL SURGERY CONSULTATION ---
DATE: 09/14/2018 REQUESTING PHYSICIAN: Dr. Lerma. CONSULT CONCERNING: Distended gallbladder. HISTORY OF PRESENT ILLNESS: A 78-year-old female who presented to the emergency department on 09/12/2018 after a fall at home. She sustained orthopedic fracture and underwent a right trochanteric femoral nailing by Dr. Medina. She apparently has done well in the postoperative period. It was noted on the workup though that she did have an elevated lipase when she got a CT scan and abdominal ultrasound which the abdominal ultrasound was not that impressive but her CT scan showed a distended gallbladder, potential trace fluid around the pancreas. She is currently without any abdominal pain and mainly complaining of pain in her hip which sounds appropriate in the postoperative period. PAST MEDICAL HISTORY: Includes hypertension, congenital heart disease with atrial septal defect, gastroesophageal reflux disease, chronic kidney disease, arthritis. PAST SURGICAL HISTORY: Includes EGD and recent femoral nailing and joint replacement. FAMILY HISTORY: Reviewed with the patient and noncontributory. SOCIAL HISTORY: Lives with family. ALLERGIES: Codeine. HOME MEDICATIONS: Of note she is on Eliquis. REVIEW OF SYSTEMS: Full 10 point review of systems obtained negative except as specified in HPI. PHYSICAL EXAMINATION: Vital Signs: Patient is currently afebrile. Her vital signs are stable. General: No acute distress. HEENT: Normocephalic, atraumatic. Pupils equal, round, reactive to light. Mucous membranes moist. Oropharynx benign. Neck: Supple. Trachea midline. Cardiovascular: Regular rate and rhythm. Lungs: Grossly clear. Abdomen: Soft, nontender, nondistended. Extremities: Recent orthopedic injury noted. Neurologic: Grossly intact. Skin: No signs of jaundice. Vascular: All extremities perfused. LABORATORY: White blood cell count normal, hematocrit 29, platelet count 197,000. Of note her bilirubin is normal, AST, ALT and alkaline phosphatase are normal, lipase is just slightly elevated at 127. It was previously elevated up to 841. IMAGING: Ultrasound, CT scan independently reviewed. ASSESSMENT AND PLAN: A 78-year-old female with a recent orthopedic fracture and possible pancreatitis. 1. Recent orthopedic fracture. At this time defer to the hospitalist and orthopedics. It sounds like she is healing up well. 2. Pancreatitis with possible biliary origin. At this time patient is really asymptomatic from it. Given the fact she has had a recent surgery, would probably does recommend repeat evaluation as an outpatient and monitor for now. She has any clinical deterioration as far as her pancreas or gallbladder is concerned I can consider surgical intervention but again, will just monitor for right now. I appreciate the consult. cc: Cuco Forde MD
[2018-09-14] MEDS: PRAVACHOL PO SCH (22:34)
[2018-09-14] MEDS: COLACE PO SCH (22:34)
[2018-09-15 06:23] LABS: BASO# 0.01 X1000 (0.0-0.2); BASO% 0.1 % (0.0-0.8); EOS# 0.04 X1000 (0.0-0.7); EOS% 0.3 % (0.0-10.0); HEMATOCRIT 27.5 % (37.0-47.0); HEMOGLOBIN 8.7 g/dL (12.0-16.0); IMM GRAN# 0.03 X1000 (0.0-0.04); IMM GRAN% 0.3 % (0.0-0.5); LYMPH# 0.58 X1000 (1.2-3.4); MCH 30.2 PG (27-31); MCHC 31.6 g/dL (33-37); MCV 95.5 FL (81-99); MONO% 8.6 % (1.7-9.3); MPV 10.8 FL (7.4-10.4); NEUT# 10.03 X1000 (1.4-6.5); NEUT% 85.7 % (42.2-75.2); PLT 194 X1000 (130-400); RBC 2.88 XMIL (4.2-5.4); RDW 14.7 % (11.5-14.5); WBC 11.69 X1000 (4.8-10.8)
[2018-09-15 06:46] LABS: CALCIUM 9.2 mg/dL (8.8-10.2); CREATININE 1.2 mg/dL (0.5-0.9); POTASSIUM 4.3 mmol/L (3.5-5.1)
[2018-09-15] MEDS: ZOFRAN IV PRN (07:23)
[2018-09-15] MEDS: CORDARONE PO SCH (09:25)
[2018-09-15] MEDS: NORVASC PO SCH (09:25)
[2018-09-15] MEDS: PRINIVIL PO SCH (09:26)
[2018-09-15] MEDS: PERIDEX MT SCH ×2 (09:28→21:09)
[2018-09-15] MEDS: FERROUS SULFATE PO SCH (09:28)
[2018-09-15] MEDS: LASIX IV SCH (09:28)
[2018-09-15] MEDS: OXY IR PO PRN ×2 (14:37→22:49)
--- NOTE | 2018-09-15 15:06 | PROGRESS NOTE ---
DATE: 09/15/2018 SUBJECTIVE: She is sitting up in bed. She seems to be doing okay, maybe a little bit tired. OBJECTIVE: Blood pressure is 114/38, heart rate 62, respiratory 14, temperature 97.9 degrees, 95% on 2 L.Cardiovascular: Regular rate and rhythm. Pulmonary: Bilateral breath sounds clear to auscultation. GI: Soft, nontender, nondistended. Bowel sounds are positive. LABORATORY DATA: White count 11, hemoglobin and hematocrit 8 and 27, platelets of 194,000. Creatinine at 1.2, BUN is up to 30. PROBLEM LIST: 1. Right intertrochanteric hip fracture status post open reduction internal fixation. Dr. Medina is following. I am going to resume her Eliquis because I think she needs it for her atrial fibrillation and she is a high deep vein thrombosis risk. 2. Atrial fibrillation. She is on amiodarone. Will continue to manage her, waiting her repeat echocardiogram because clinically she has signs of heart failure. 3. Elevated lipase. It looks like she has some biliary dyskinesia. Appreciate Dr. Forde's input. Obviously will need to follow up and decide about surgery and continue to follow. 4. Anasarca. I am not sure if this is directly related to malnutrition or other things issue there but we will continue to monitor. DISPOSITION: Pending her clinical status but I think we are looking at rehab options. cc: Lee Lerma MD
--- NOTE | 2018-09-15 16:38 | ECHO REPORT ---
ORDER DATE: 09/15/2018 ECHOCARDIOGRAPHIC MEASUREMENTS: 1. Interventricular septum 1.1. 2. Left ventricular posterior wall 1.1. 3. Diastolic diameter 4.8. 4. Left atrium 5. 5. Aorta 3.3. SUMMARY OF 2-DIMENSIONAL IMAGIN. There is moderate tricuspid regurgitation. 2. Tricuspid valve was normal. Peak velocity across the tricuspid valve was 4.9 m/sec. Pulmonary artery systolic pressure of 107 mmHg. There is significant pulmonary arterial hypertension. Mitral valve was normal. 3. Aortic valve leaflets are trileaflet. Pulmonic valve was normal. 4. Right ventricle is dilated. 5. Peak velocity across the aortic valve less than 2 m/sec. There is no aortic stenosis or regurgitation. 6. Normal left ventricular cavity size. Estimated ejection fraction of 60%. CONCLUSIONS: 1. Normal left ventricular cavity size. Estimated ejection fraction of 60%. 2. Right ventricle is dilated with reduced right ventricular systolic function. 3. There is moderate tricuspid regurgitation with severe pulmonary arterial hypertension. 4. There is no aortic stenosis or regurgitation. 5. There is no pericardial effusion or obvious intracardiac mass or thrombus seen. 6. Technically suboptimal study. Poor acoustic window. cc: MD Lee Greer MD
[2018-09-15] MEDS: MIRALAX PO SCH (17:14)
[2018-09-15] MEDS: COLACE PO SCH (21:08)
[2018-09-15] MEDS: PRAVACHOL PO SCH (21:09)
[2018-09-15] MEDS: LACTULOSE PO SCH (21:09)
[2018-09-16 06:31] LABS: EOS# 0.01 X1000 (0.0-0.7); EOS% 0.1 % (0.0-10.0); HEMATOCRIT 26.6 % (37.0-47.0); HEMOGLOBIN 8.5 g/dL (12.0-16.0); IMM GRAN# 0.02 X1000 (0.0-0.04); IMM GRAN% 0.2 % (0.0-0.5); LYMPH# 0.37 X1000 (1.2-3.4); LYMPH% 3.2 % (20.5-51.1); MCH 29.8 PG (27-31); MCV 93.3 FL (81-99); MPV 11.2 FL (7.4-10.4); NEUT% 89.5 % (42.2-75.2); PLT 238 X1000 (130-400); RBC 2.85 XMIL (4.2-5.4); RDW 14.4 % (11.5-14.5)
[2018-09-16 06:55] LABS: AGAP 12; BUN 29 mg/dL (8-22); CALCIUM 9.2 mg/dL (8.8-10.2); CHLORIDE 90 mmol/L (98-107); COSMO 260; CREATININE 0.9 mg/dL (0.5-0.9); ESTIMATED GFR > 60; GLUCOSE 110 mg/dL (70-104); POTASSIUM 3.9 mmol/L (3.5-5.1); SODIUM 126 mmol/L (136-145); TCO2 24 mmol/L (25-35)
[2018-09-16 07:43] LABS: LYMPHS 1 % (21-51); MONO 5 % (1-9); SEGS 94 % (42-75)
--- NOTE | 2018-09-16 08:59 | ORTHOPAEDICS CONSULTATION ---
DATE: 09/16/2018 SUBJECTIVE DATA: Ms. Greene is lying in bed. Her at the bedside. She is not complaining of any pain. She does state she has had trouble getting up and mobilizing. OBJECTIVE DATA: Right lower extremity: Her incision looks good. It is well approximated and there is no erythema or drainage. The dressing did have some serosanguineous drainage on it, but there was none coming from the incision today. She is able to dorsi and plantar flex the ankle. She has good sensation to the lower extremity. She is able to straighten the leg out, but does have trouble raising it a little bit. She has a 1+ pedal pulse. ASSESSMENT: Status post right trochanteric femoral nailing. PLAN: Ms. Kirk is doing well. Her pain is well controlled. She is having a little bit of issue mobilizing. She states she was not very ambulatory before the fall. We are going to have therapy come work with her today. It does look like we are planning on her going to rehab and I do think that is the best option for her. She is going to need quite a bit of care getting her back mobile. I think a stay in a rehab facility would greatly benefit her. We do want to see her as an outpatient in Dr. Medina's office usually in a week to 2 weeks from discharge from the hospital, depending on what the rehab facility allows. If there is any questions or concerns, please give Dr. Medina a call. Dictated by ALBERTA Parham for Frankie Medina MD cc: ALBERTA Parham MD
[2018-09-16] MEDS: PRINIVIL PO SCH ×2 (09:39→09:42)
[2018-09-16] MEDS: FERROUS SULFATE PO SCH (09:39)
[2018-09-16] MEDS: LASIX PO SCH (09:40)
[2018-09-16] MEDS: CORDARONE PO SCH ×2 (09:40→09:42)
[2018-09-16] MEDS: LACTULOSE PO SCH ×2 (09:40→22:44)
[2018-09-16] MEDS: MIRALAX PO SCH (09:40)
[2018-09-16] MEDS: PERIDEX MT SCH ×2 (09:40→22:44)
[2018-09-16] MEDS: NORVASC PO SCH ×2 (09:40→09:42)
[2018-09-16 10:04] LABS: URINE SOURCE CLEAN CATCH
[2018-09-16 10:10] LABS: BILIRUBIN URINE NEGATIVE (NEGATIVE); BLOOD URINE NEGATIVE (NEGATIVE); COLOR YELLOW; GLUCOSE URINE NEGATIVE (NEGATIVE); KETONE URINE NEGATIVE (NEGATIVE); LEUKOCYTES URINE NEGATIVE (NEGATIVE); NITRITE URINE NEGATIVE (NEGATIVE); PH URINE 5.5; PROTEIN URINE NEGATIVE (NEGATIVE); SP GRAVITY URINE 1.001; TURBIDITY URINE CLEAR (CLEAR); UROBILINOGEN URINE NORMAL (NORMAL)
[2018-09-16 10:11] LABS: UR EPITHELIAL CELLS <10 /HPF (<10); URINE BACTERIA NEGATIVE /HPF; URINE RBC <10 /HPF (<10); URINE WBC <10 /HPF (<10)
[2018-09-16] MEDS ORDERED: NS 1,000 ML IV SCH (11:30)
--- NOTE | 2018-09-16 12:06 | Diag Imaging Result Doc PS360 ---
EXAM: CHEST-PORTABLE HISTORY: dyspnea TECHNIQUE: Portable chest single view COMPARISON: 09/12/2018 FINDINGS: The lungs are well expanded. Atelectasis or scarring in the left lungThe. Heart is enlarged. The vessels are not distended. There are no infiltrates. No effusion identified. IMPRESSION: Cardiomegaly Electronically signed by Jacoby Winchester 09/16/2018 12:04 PM
[2018-09-16] MEDS: ROCEPHIN 1 GM in NS 50 ML IV SCH (13:39)
[2018-09-16] MEDS: DUONEB (A & A) INH SCH ×3 (15:47→21:42)
--- NOTE | 2018-09-16 19:27 | PROGRESS NOTE ---
DATE: 09/16/2018 SUBJECTIVE: The patient is resting comfortably in bed. No acute events noted overnight. She states that she feels short of breath. OBJECTIVE: Vital Signs: Temperature 97.4 degrees, blood pressure 119/44, heart rate 67, respirations 17, O2 saturation 98% on 3 L nasal cannula. General: This is a chronically ill- appearing elderly female lying in bed in no acute distress. Heart: S1, S2. Normal. Lungs: Equal air entry bilaterally. No crackles. No rales. Abdomen: Positive bowel sounds. Soft, nontender, nondistended. Extremities: 1+ edema. Neurologic: The patient was alert and oriented. LABORATORY DATA: White blood cell count 11, hemoglobin 8.5, hematocrit 26, platelets 238,000, sodium 126, potassium 3.9, chloride 90, CO2 24, BUN 29, creatinine 0.9, glucose 110. UA negative. ASSESSMENT AND PLAN: 1. Status post right trochanteric femoral nailing. Stable. Continue with physical therapy. 2. Hyponatremia. We will check the urine sodium and urine osmolality. We will also start the patient on gentle IV fluid hydration. 3. Constipation. Continue on lactulose and MiraLAX. We will also add a Dulcolax suppository. 4. Atrial fibrillation. Continue on amiodarone. 5. Leukocytosis. We will continue to monitor the patient's white blood cell count closely. 6. Anemia. We will monitor the hemoglobin and hematocrit closely. DISPOSITION: The patient has a bed at [facility]. We will see what the patient's laboratory studies look like tomorrow. cc: Margaret Palma MD
[2018-09-16] MEDS: COLACE PO SCH (22:44)
[2018-09-16] MEDS: PRAVACHOL PO SCH (22:44)
[2018-09-17] MEDS: OXY IR PO PRN ×3 (00:22→22:33)
[2018-09-17] MEDS: DUONEB (A & A) INH SCH ×4 (05:26→21:00)
[2018-09-17 06:36] LABS: HEMATOCRIT 24.4 % (37.0-47.0); HEMOGLOBIN 7.9 g/dL (12.0-16.0); MCH 31.2 PG (27-31); MCHC 32.4 g/dL (33-37); MCV 96.4 FL (81-99); MPV 10.8 FL (7.4-10.4); RBC 2.53 XMIL (4.2-5.4); RDW 14.7 % (11.5-14.5); WBC 9.59 X1000 (4.8-10.8)
[2018-09-17 06:48] LABS: AGAP 12; BUN 19 mg/dL (8-22); CALCIUM 8.5 mg/dL (8.8-10.2); CHLORIDE 98 mmol/L (98-107); COSMO 272; CREATININE 0.9 mg/dL (0.5-0.9); ESTIMATED GFR > 60; GLUCOSE 95 mg/dL (70-104); POTASSIUM 3.7 mmol/L (3.5-5.1); SODIUM 135 mmol/L (136-145); TCO2 25 mmol/L (25-35)
[2018-09-17] MEDS: PERIDEX MT SCH ×2 (10:44→22:35)
[2018-09-17] MEDS: CORDARONE PO SCH (10:44)
[2018-09-17] MEDS: FERROUS SULFATE PO SCH (10:44)
[2018-09-17] MEDS: LACTULOSE PO SCH ×2 (10:44→22:36)
[2018-09-17] MEDS: MIRALAX PO SCH (10:44)
[2018-09-17] MEDS: LASIX PO SCH (10:44)
[2018-09-17] MEDS: NORVASC PO SCH (10:45)
[2018-09-17] MEDS: PRINIVIL PO SCH (10:45)
[2018-09-17] MEDS: DULCOLAX PR SCH ×2 (10:48→22:36)
[2018-09-17] MEDS ORDERED: LOVENOX SUBQ SCH (11:04)
[2018-09-17 13:09] LABS: ALLEN TEST YES; BE 2.4 mmoll (-3.0-3.0); BLOOD TYPE ARTERIAL; HCO3-(ACT) 26.8 mmoll (20.0-26.0); O2(CT) 12.1 mL/dL (15.0-23.0); O2HB 94.6 % (95.0-99.0); PCO2(98.6) 37 mmHg (35-45); PO2(98.6) 70 mmHg (60-100); SAMPLE BLOOD; SAO2 97.3 % (95.0-100.0); pH(98.6) 7.46 (7.35-7.45)
[2018-09-17 13:10] LABS: MODALITY CANNULA
[2018-09-17] MEDS: ROCEPHIN 1 GM in NS 50 ML IV SCH (13:30)
--- NOTE | 2018-09-17 13:48 | CONSULTATION ---
DATE OF CONSULTATION: 09/17/2018 HISTORY OF PRESENT ILLNESS: Ms. Kirk is 78 years old and she has had some mental alteration. History from attentive family and review of hospital record is that she had only age-appropriate baseline forgetfulness and nothing more remarkable than that. She managed her own medications and took care of checkbook without incident. Her gait had become more difficult with some infrequent falls. Family estimates 4 or 5 falls over the last few years. At least once she got up without assistance, but most times she needed assistance to get up after a fall. Family attributed gait difficulty to her multiple lower extremity degenerative joint problems. She fell several days ago and sustained hip fracture. She had that managed surgically and has done well from surgical standpoint. She has had some confusion in recent days. According to family, the day after surgery she was awake and alert and had appropriate conversation. Next day, she had some confusion and today seems to be a little bit better. She has been particularly restless at night. She has asked family to tell her where she is, and she has argued that she is not in the hospital. She has not failed to recognize as her or to call him by correct name. There has not been definite altered awareness, unconsciousness or unresponsiveness. There is no history of serious head injury, previous diagnosed stroke, seizure, other alteration of awareness. She does not use ethanol. Family has never seen her have this behavior before. Her last surgery, anesthesia, hospitalization was about 12 years ago, and was uneventful. She has taken opiate medicines in the past without problem. This admission, sodium drifted as low as 126, back to 135 today. BUN was as high as 30, back to 19 now. I do not see anything else remarkable in the lab work. Her medication list includes oxycodone with 5 mg administered twice today. She had morphine earlier, but no dose in the last 3 days. I do not see anything else on the medication list that likely would produce encephalopathy. Echocardiogram showed no source of embolus. Noncontrast CT was unremarkable. She has been afebrile. Systolic blood pressures have ranged 100s to 130s over the last several days. PHYSICAL EXAMINATION: On exam now, Ms. fierro is awake, alert, bright, cheerful, attentive. She answered questions correctly and appropriately. She missed the day of the week by just 1 day. She identified the month and year correctly. She named the president. She had some hesitation trying to identify the hospital, but eventually did name it correctly. She followed simple instructions. She followed commands requiring right/left distinction and digit distinction. Speech is not dysarthric. Remote memory is good. Head and neck are unremarkable. Visual sanford are full, tested grossly by confrontational finger counting. Extraocular movements are full. Pupils react slightly to bright light. The left nasolabial fold is a little bit flatter than the right, but facial motility is good bilaterally. Gag is intact. Tongue is midline. She can hear. Shoulder shrug is equal. Strength is normal in the arms. She has understandable discomfort limiting full effort in the legs, but I could not find definite motor deficit proximally. She seems unable to dorsiflex the right foot completely. Left lower leg power is good. Plantar response is silent bilaterally. Reflexes are uncertain with poor relaxation at the ankles. Reflexes are 1+ symmetrically at the wrists. Proprioception is good at the great toe MTP joint bilaterally. She reports equal pinprick appreciation over the feet. I did not test her gait. IMPRESSION: 1. Global encephalopathy, uncertain etiology. This is likely multifactorial. By report from family, I believe she is better today than yesterday. She may have minimal baseline cognitive impairment, but I am not certain about that. She did have transient slight hyponatremia and azotemia, but I am not sure these were remarkable. She has had opiate pain medicines here, which can be associated with adverse effects, but she has had these in the past without difficulty. I do not see evidence of increased intracranial pressure, DERRICK ENGINEER infection, stroke or other neurologic event. Since she seems to be improved today, I do not have any urgent suggestion. I would continue current management. If she has more prominent agitated confusion, we might consider cautious trial with low-dose neuroleptic medicine. I discussed that briefly with family. After discharge, if she seems to be more forgetful or have different personality, I will be glad to see her as an outpatient to check cognitive function more thoroughly and to consider cholinesterase inhibitor trial. 2. She may have right foot drop. This may be contributing to her unsteady gait and tendency to fall. I cannot examine her right leg vigorously now. After she is more recovered from surgery, we might need to evaluate that more thoroughly. Thanks for asking Neurology to see Ms. Kirk. cc: Haim Matias III, MD MTDD
--- NOTE | 2018-09-17 15:20 | Diag Imaging Result Doc PS360 ---
EXAM: ABDOMEN FLAT/UPRIGHT 09/17/2018 HISTORY: constipation TECHNIQUE: Flat and upright abdomen COMMENT: There is gas and stool throughout the colon with some dilatation. The ascending colon is at least 9 cm in diameter. Some fecal debris and gas is seen in the sigmoid colon. There is no significant small bowel or gastric distention. There is no evidence organomegaly or mass. IMPRESSION: Colonic ileus with constipation and/or distal colonic obstruction. Electronically signed by Michael Gannon 09/17/2018 3:18 PM
--- NOTE | 2018-09-17 15:50 | Diag Imaging Result Doc PS360 ---
EXAM: CT HEAD W/O CONTRAST 09/17/2018 HISTORY: encephalopathy TECHNIQUE: This exam was performed using automated exposure control, adjustment of mA or kV according to patient size, and/or use of iterative reconstruction technique. COMMENT: There is no evidence of mass effect, bleed, or abnormal extra-axial fluid collection. Compared to 09/12/2018 there has been no significant change in the appearance the brain. There is hyperostosis frontalis interna. The visualized paranasal sinuses are clear. IMPRESSION: Stable CT of the head. Electronically signed by Michael Gannon 09/17/2018 3:47 PM
--- NOTE | 2018-09-17 16:13 | Diag Imaging Result Doc PS360 ---
EXAM: CT THORAX W/O CONTRAST 09/17/2018 HISTORY: hypoxemia/bronchitis TECHNIQUE: This exam was performed using automated exposure control, adjustment of mA or kV according to patient size, and/or use of iterative reconstruction technique. COMMENT: There are no previous thoracic studies available for comparison. Comparison is made where possible with the abdominal study of 09/14/2018. There is ill-defined bibasilar opacity which appears to be in conjunction with bronchiectasis in both lower lobes. There are patchy groundglass and ill-defined nodular opacities present in both lower and upper lobes. There is a larger area of ill-defined opacity in the lateral right upper lobe around image 27. None of the nodular opacities demonstrated on the current study are present on the previous examination. This may be due to pneumonia. The possibility of septic embolus disease cannot be excluded. There is vicariously excreted contrast in the gallbladder. There is a pericardial effusion which appears enlarged since the previous examination measuring over 8 mm posteriorly on the left compared to less than 5 mm previously. The left ventricle and left atrium are particularly enlarged. There are calcifications in the left anterior descending artery. The aorta does not appear to be distended. There is a fairly large amount of stool in the splenic flexure of the colon. IMPRESSION: 1. Bibasilar atelectasis versus pneumonia with atelectasis similar in appearance to 09/14/2018. 2. New patchy and nodular opacities bilaterally which may represent bronchopneumonia. 3. Cardiomegaly with worsening pericardial effusion. Coronary atherosclerosis. 4. Constipation. Electronically signed by Michael Ganonn 09/17/2018 4:10 PM
[2018-09-17] MEDS: ZYVOX 600 MG/D5W 600 MG/300 ML IVPB IV SCH (17:43)
--- NOTE | 2018-09-17 18:43 | PROGRESS NOTE ---
DATE: 09/17/2018 SUBJECTIVE: The patient states that she still has a productive cough and has been having periods of confusion as witnessed by the nursing staff and family members. OBJECTIVE: Vital Signs: Temperature 97.4, blood pressure 114/46, heart rate 65, respirations 15. O2 sats 97% on 3 L nasal cannula. General: This is a chronically ill-appearing elderly female lying in bed in no acute distress. Heart: S1, S2 normal. Lungs: Equal air entry bilaterally. No wheezing. No rales. Abdomen: Positive bowel sounds. Soft, nontender, nondistended. Extremities: 1+ edema bilaterally. Neurologic: The patient is alert and oriented x 3. No focal neurologic deficits noted. LABS: 1. White blood cell count 9.5, hemoglobin 7.9, hematocrit 24, platelets 242,000. Sodium 135, potassium 3.7, chloride 98, CO2 25, BUN 19, creatinine 0.9, glucose 95. 2. Head CT shows no acute finding. 3. Chest CT shows bibasilar atelectasis versus pneumonia. New patchy nodular opacities bilaterally. Cardiomegaly with worsening pericardial effusion. Constipation. 4. Abdominal x-ray which shows colonic ileus with constipation and/or distal colonic obstruction. ASSESSMENT AND PLAN: 1. Acute hypoxemic respiratory failure. The chest CT done today shows possible pneumonia as well as bibasilar atelectasis. The patient is on antibiotic therapy. Will also add incentive spirometer and consult with the senior business development analyst. 2. Possible pneumonia. Will continue with broad-spectrum antibiotics and bronchodilator therapy. Will also check a procalcitonin level. Blood cultures and sputum have been ordered. 3. Colonic ileus versus obstruction. Will consult with GI. The patient has been receiving laxative therapy with the results. 4. Status post right trochanteric femoral nailing. Stable. Continue physical therapy. 5. Anemia. The patient's H H has decreased; however, the patient was receiving IV fluids yesterday. We will check iron studies and monitor closely. 6. Pericardial effusion. This was seen on the chest CT done today. Will order an echocardiogram to further assess this. 7. Encephalopathy. The patient has an underlying infection. The patient has also been assessed by the neurologist. We will continue to treat the underlying issues and monitor for improvement. 8. Atrial fibrillation. Continue on amiodarone. The patient's Eliquis has been restarted. 9. Disposition. The patient has a bed at [facility] in [place]. The patient will be discharged to rehab once she is medically stable. cc: Margaret Palma MD MTDD
--- NOTE | 2018-09-17 21:22 | GASTROENTEROLOGY CONSULTATION ---
DATE: 09/17/2018 Reason for consultation: colonic ileus on imaging HPI: Ms. Roseline Kirk is a 78 year old woman with HTN, HLD, GERD, CKD, Afib on Eliquis who wa admitted with right hip fracture s/p repair on 09/13 who presents to the GI service with colon ileus on imaging. Patient reports not having a bowel movement in the last 7 days since hospitalization until this morning. Patient reports having a large bowel movement that caused perianal tenderness from straining. She denies N/V/F, CP, SOB, abdominal pain, rectal bleeding, or melena. She had a colonoscopy about 10 years ago. No personal or family history of GI diseases. Patient does not want rectal exam. Daughter at bedside. Of note, patient has labs on admission showing a lipase on 800s. However, patient did not complain of abdominal pain. 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 No prior abdominal surgeries FAMILY HISTORY: No FHx of GI malignancies SOCIAL HISTORY: She currently lives with family. No T/E/D HOME MEDICATIONS: She takes Cordarone 200 mg p.o. daily, Norvasc 10 mg p.o. daily, Prinivil 20 mg p.o. daily, pravastatin 20 mg p.o. at bedtime, and we will hold her Eliquis 5 mg p.o. b.i.d. ALLERGIES: Codeine. PHYSICAL EXAMINATION: VITAL SIGNS: Temperature of 97.8, pulse 71, respirations 20, blood pressure 147/67. Satting 97 on 2.5L GENERAL: awake, alert, NAD HEENT: Normocephalic, atraumatic. Normal ENT inspection. Oropharynx and nares are clear. EYES: Pupils are equal, round and reactive to light and accommodation. EOMI NECK: Normal inspection. Normal range of motion. no JVD LUNGS: Clear to auscultation bilaterally with equal lung expansion and chest wall movement. HEART: With regular rate and rhythm. No murmurs, rubs or gallops. ABDOMEN: Soft, nontender, nondistended. Bowel sounds are present x 4 quadrants. NEUROLOGIC: The cranial nerves 2-12 appear grossly intact. LABORATORY DATA: Na 135 K 3.7 Cl 98 CO2 25 BUN 19 Cr 0.9 WBC 9.59 Hgb 7.9 from 11 on admission plts 242K UA negative lipase 227 <-- 800s CTAP with PO and IV 09/14: IMPRESSION: 1.Cardiomegaly with a trace pericardial effusion. 2.Trace bilateral pleural effusions and bibasilar atelectasis. 3.Intrahepatic periportal edema edema likely related to congestive heart failure. 4.Trace ascites in the upper abdomen and tracking around the liver. 5.Gallbladder distention with hyperdense material in the lumen of the gallbladder suggesting sludge. 6.Although there is a small amount of fluid near the pancreas, this may simply be the trace ascites as it does not clearly emanate from the pancreas. In the right clinical scenario, a component of pancreatitis could be possible, however. 7.Nonspecific moderate distention of the transverse colon and stomach. No obstructive bowel pattern. 8.Moderate body wall anasarca. Abdominal US 09/13 normal A/P: Ms. Roseline Kirk is a 78 year old woman with HTN, HLD, GERD, CKD, Afib on Eliquis who wa admitted with right hip fracture s/p repair on 09/13 who presents to the GI service with colon ileus on imaging. She is not obstructed clinically. +BM today. Abdomen benign. She has acute on chronic anemia that is being addressed by primary team. #Colonic ileus: minimize narcotics, continue bowel regimen, correct lytes #Constipation: plan as above #Elevated lipase: improved; patient clinically does not have pancreatitis; LFTs unremarkable #Right hip fracture s/p repair: post-surgical mgmt as per surgery #GERD: continue PPI #Anemia: acute on chronic; post-surgical; will need outpatient colonoscopy when acute issues resolve #Afib: on Eliquis and amiodarone #Perianal discomfort: suspect 2/2 hemorrhoids vs anal fissure in setting of constipation; recommend topical therapy with hydrocortisone cream BID Thank you for this consult. Patient is ok to be discharged from a GI perspective with outpatient follow-up MTDD
--- NOTE | 2018-09-17 21:26 | GENERAL SURGERY PROGRESS NOTE ---
DATE: 09/17/2018 SUBJECTIVE: I am seeing her in Dr. Forde's absence. He had been asked to see her because of her elevated lipase. In talking with . Reagan lopez, she has no abdominal pain. Her abdomen is soft and nontender. Of note is that her lipase fell precipitously from 09/13 to 09/14. PLAN: In view of her lack of abdominal complaints, I do not think any further intervention or evaluation is needed for her lipase. cc: Kvng Nuñez MD
[2018-09-17] MEDS: PRAVACHOL PO SCH (22:33)
[2018-09-17] MEDS: MAXIPIME 2 GM in NS 100 ML IV SCH (22:33)
[2018-09-17] MEDS: COLACE PO SCH (22:33)
[2018-09-17] MEDS: ELIQUIS PO SCH (22:35)
--- NOTE | 2018-09-18 01:50 | PULMONOLOGY CONSULTATION ---
DATE: 09/17/2018 REQUESTING PHYSICIAN: Dr. Palma. REASON FOR CONSULTATION: Hypoxemic respiratory failure and bronchitis. HISTORY OF PRESENT ILLNESS: Ms Kirk is a 78-year-old white female who was admitted to the hospital on 09/12/2018, when she fell and fractured her right hip. The patient went to the operating room 09/13/2018 and had a right trochanteric femoral nail placed. The patient has had a wet cough during this hospitalization. The patient's reports that she has had a wet cough for over a month. She has seen Dr. Orta concerning this problem and was initiated on a nebulizer machine at the house approximately 1 week before the fall. The patient reports she has had a long history of GI reflux. She does snack occasionally before going to bed. She does not have the head of her bed elevated. She previously was instructed to elevate the head of the bed, but neither her nor her can remember why it is no longer elevated. She is currently being evaluated for transfer to the rehab facility. PAST MEDICAL HISTORY/PROBLEM LIST: 1. Significant reflux, as outlined above. 2. Recent hip fracture, as outlined above. 3. Hypertension. 4. History of congenital heart disease with atrial defect. 5. Chronic kidney disease. 6. Arthritis. SOCIAL HISTORY: Patient lives with her . No alcohol use. She is a never tobacco user. FAMILY HISTORY: Noncontributory to current presentation. REVIEW OF SYSTEMS: As noted in the HPI. PHYSICAL EXAMINATION: General: Reveals a well-developed, well-nourished, white female who has an intermittent cough during the evaluation which sounds productive. Vital signs: The patient has been afebrile during the last 24 hours. Blood pressure 114/46, heart rate 65, respiratory rate 14, oxygen saturation 97% on 3 L per nasal cannula. HEENT: Pupils are equal and reactive. Oropharynx is clear. Neck: Supple. Chest: Reveals occasional rhonchi bilaterally with bibasilar crackles. Cardiac: S1, S2. Abdomen: Soft without hepatosplenomegaly. Extremities: Reveal trace to 1+ peripheral edema. LABORATORIES: CT scan of the thorax reveals bibasilar infiltrates which could be seen on the abdominal study of 09/14/2018, but she has new ill-defined nodular opacities which were not present on prior exam. IMPRESSION: A 78-year-old with long history of gastroesophageal reflux who has had difficulty with bronchitis over the last 4 or more weeks. The patient has been admitted to the hospital and has developed new infiltrates during this hospitalization. Given history, she has developed an aspiration bronchitis/pneumonitis. She has mild hypoxemic respiratory failure. RECOMMENDATIONS: 1. Strict reflux precautions. The patient's head of bed should remain elevated at 30 degrees at all times. The patient should eat a small meal in the evening and should not elevate the head of her bed. She should continue gastric acid suppression. 2. Continue current antibiotic regimen. She could be transferred to rehab on an oral antibiotic such as Augmentin. 3. Wean oxygen as tolerated. 4. Patient was encouraged to follow these recommendations when she returns home. If her bronchitis does not completely resolve, would consider modified barium swallow to ensure she is not having episodes of aspiration with p.o. intake. cc: Gómez Dillard MD
[2018-09-18] MEDS: DUONEB (A & A) INH SCH ×4 (05:40→19:41)
[2018-09-18 06:08] LABS: BASO# 0.01 X1000 (0.0-0.2); BASO% 0.1 % (0.0-0.8); EOS# 0.17 X1000 (0.0-0.7); HEMATOCRIT 24.1 % (37.0-47.0); HEMOGLOBIN 7.8 g/dL (12.0-16.0); IMM GRAN# 0.06 X1000 (0.0-0.04); IMM GRAN% 0.7 % (0.0-0.5); LYMPH# 0.71 X1000 (1.2-3.4); LYMPH% 8.4 % (20.5-51.1); MCH 30.8 PG (27-31); MCHC 32.4 g/dL (33-37); MCV 95.3 FL (81-99); MONO# 0.74 X1000 (0.11-0.59); MONO% 8.8 % (1.7-9.3); MPV 10.8 FL (7.4-10.4); NEUT# 6.74 X1000 (1.4-6.5); PLT 246 X1000 (130-400); RBC 2.53 XMIL (4.2-5.4); RDW 14.8 % (11.5-14.5); RETIC% 3.24 % (0.8-2.1); RETIC-HE 32.3 PG (28.2-36.6); WBC 8.43 X1000 (4.8-10.8)
[2018-09-18] MEDS: ZYVOX 600 MG/D5W 600 MG/300 ML IVPB IV SCH (06:11)
[2018-09-18] MEDS: PROTONIX PO SCH (06:11)
[2018-09-18 06:26] LABS: AGAP 12; BUN 18 mg/dL (8-22); CALCIUM 8.2 mg/dL (8.8-10.2); CHLORIDE 98 mmol/L (98-107); COSMO 274; CREATININE 0.8 mg/dL (0.5-0.9); ESTIMATED GFR > 60; GLUCOSE 106 mg/dL (70-104); IRON SATURATION 13 %; POTASSIUM 3.3 mmol/L (3.5-5.1); SODIUM 136 mmol/L (136-145); TCO2 26 mmol/L (25-35); TIBC 171 ug/dL; TOTAL IRON 23 ug/dL (49-151); UNBOUND IRON 148 ug/dL (112-346)
[2018-09-18] MEDS ORDERED: POTASSIUM CHLORIDE 60 MEQ in NS 500 ML IV ONE (06:32)
[2018-09-18 06:40] LABS: FERRITIN 277 ng/mL (13-150)
[2018-09-18 07:06] LABS: PHOSPHORUS 2.8 mg/dL (2.7-4.5)
[2018-09-18] MEDS ORDERED: FLEET MINERAL OIL ENEMA PR ONE (08:46)
[2018-09-18] MEDS ORDERED: SORBITOL PO ONE (09:00)
[2018-09-18] MEDS: MAXIPIME 2 GM in NS 100 ML IV SCH ×2 (09:47→22:15)
--- NOTE | 2018-09-18 09:58 | PROGRESS NOTE ---
DATE: 09/18/2018 Ms. Kirk had a good night, according to . She rested better than previous nights. This morning, she is awake, alert, attentive, and she seems appropriate. I do not have any new thoughts or new suggestions from neurology standpoint. I hope she has turned a corner and will continue to do well without recurrent significant encephalopathy. I discussed again with the possibility that we might consider more thorough cognitive evaluation later as an outpatient. Also, might consider evaluation of her gait difficulty and possible right footdrop. I encouraged her to be aggressive with her physical therapy here. Thanks for asking neurology to see Ms. Kirk. cc: MD BLANCA Harrington III
[2018-09-18] MEDS: PERIDEX MT SCH ×2 (11:04→22:16)
[2018-09-18] MEDS: LACTULOSE PO SCH ×2 (11:04→22:16)
[2018-09-18] MEDS: MIRALAX PO SCH ×2 (11:05→22:16)
[2018-09-18] MEDS: LASIX PO SCH (11:05)
[2018-09-18] MEDS: CORDARONE PO SCH (11:05)
[2018-09-18] MEDS: FERROUS SULFATE PO SCH (11:05)
[2018-09-18] MEDS: ELIQUIS PO SCH ×2 (11:06→22:17)
[2018-09-18] MEDS: FOLIC ACID PO SCH (11:06)
--- NOTE | 2018-09-18 11:11 | Diag Imaging Result Doc PS360 ---
EXAM: CHEST-1 VIEW HISTORY: dyspnea TECHNIQUE: Single AP view COMPARISON: 09/06/2018 FINDINGS: There is cardiomegaly and mild vascular congestion. No infiltrate, effusion, or pneumothorax is appreciated. IMPRESSION: Cardiomegaly and mild vascular congestion. Electronically signed by Leslie Shelton 09/18/2018 11:09 AM
--- NOTE | 2018-09-18 11:16 | Diag Imaging Result Doc PS360 ---
EXAM: ABDOMEN FLAT/UPRIGHT HISTORY: ileus TECHNIQUE: Two views COMPARISON: 09/17/2018 FINDINGS: The cecum and transverse colon again appear dilated. Maximal dimension of the cecum is 8.8 cm today. No small bowel distention. Distal gas is present. No free air. Cardiomegaly with bilateral effusions noted. IMPRESSION: Persistent dilatation of the cecum/ ascending colon to 8.8 cm. Electronically signed by Leslie Shelton 09/18/2018 11:13 AM
[2018-09-18] MEDS: ZOFRAN IV PRN (12:15)
--- NOTE | 2018-09-18 14:01 | PROGRESS NOTE ---
DATE: 09/18/2018 SUBJECTIVE: The patient is resting comfortably in bed. No acute events noted overnight. She is more awake and alert, but she has not had a bowel movement yet. OBJECTIVE: Vital Signs: Temperature 97.4 degrees, blood pressure 117/41, heart rate 61, respirations 18, O2 saturation 93% on room air. General: This is a chronically ill-appearing, elderly female, sitting up in bed in no acute distress. Heart: S1, S2. Normal. Lungs: Clear to auscultation bilaterally. Abdomen: Positive bowel sounds. Soft, nontender. Extremities: No edema, no cyanosis. Neurologic: The patient is alert and oriented x4. LABS: White blood cell count 8.4, hemoglobin 7.8, hematocrit 24, platelets 246. Sodium 136, potassium 3.3, chloride 98, CO2 26. BUN 18, creatinine 0.8, glucose 106, calcium 8.2, B 12 239, folate 4.1. ASSESSMENT AND PLAN: 1. Bronchitis versus pneumonia. Continue with antibiotic and bronchodilator therapy. 2. Colonic ileus. The patient has not had a bowel movement yet, despite being on multiple laxatives. Will await further recommendations from Gastroenterology. 3. Status post right trochanteric femoral nailing. Stable. 4. Pericardial effusion. The patient had a repeat echocardiogram done today. Will follow up on the results. 5. Encephalopathy. Resolved. 6. Atrial fibrillation. Continue on amiodarone and Eliquis. 7. Disposition: The patient will be discharged to [facility] in [place] once she is medically stable. cc: Margaret Palma MD
--- NOTE | 2018-09-18 14:33 | GASTROENTEROLOGY PROGRESS NOTE ---
DATE: 09/18/2018 SUBJECTIVE: Patient is resting in bed. Her is present at bedside. The patient had a bowel movement yesterday. She is on laxatives. She complains of drainage at the right hip surgery site. She denies any abdominal pain this morning. She denies any nausea or vomiting. Denies any fevers, rigors, or chills. OBJECTIVE: Vital signs: Temperature 98.3, pulse rate of 62, respiratory rate of 16, blood pressure 110/42, saturating 95% on room air. Body weight of 164 pounds 2 ounces. BMI of 30.0 kg/m2. General: Moderately built, moderately nourished, lying in bed, in no acute distress. HEENT: Pale conjunctivae. No icterus. Neck: Supple. Abdomen: Protuberant, soft, nontender, nondistended. No guarding. Extremities: No cyanosis, clubbing. She had recent right hip surgery. Neurologic: She is alert, awake, oriented x3. LAB: Hemoglobin and hematocrit are 7.8 and 24.1, white count of 8.43, platelet count of 246,000. Sodium 136, potassium 3.3, chloride 98, bicarb 26, anion gap 12, BUN of 18, creatinine 0.8, glucose of 106, calcium is 8.2, phosphorus 2.8, magnesium 2. Iron level of 23, percent saturation of 13, ferritin of 277. Her liver enzymes are normal. AST 26, ALT 15, alkaline phosphatase 52, total protein 5.6, albumin of 3.2, total bilirubin is 0.74. B12 of 239, folate of 4.1, both are low. Blood culture x2 were drawn yesterday and they are currently pending. IMPRESSION AND PLAN: 1. Colonic ileus is improving. We will continue on bowel regimen, MiraLAX twice daily and lactulose twice daily. We will recommend the patient to reduce the dose of narcotics as low as possible after consultation with primary care team and orthopedics team. 2. Constipation. As above. 3. Elevated lipase is improved. The patient does not clinically have pancreatitis and denies any abdominal pain. Her liver enzymes are normal. 4. Reflux disease. Continue PPIs at home. 5. Anemia, likely postsurgical. She will need outpatient EGD and colonoscopy once she recovers from right hip surgery. In this regard, the patient is to follow up in the clinic in 4 weeks after discharge. 6. Atrial fibrillation: She is on Eliquis and amiodarone. 7. Perianal discomfort has improved. Likely secondary to hemorrhoids or anal fissure. Will follow up on a colonoscopy in 4-6 weeks after healing from the current surgery. 8. History of hypertension, hyperlipidemia, chronic kidney disease, was admitted for right hip fracture, status post repair on 09/13/[address] Medina. 9. Iron deficiency. We will start her on iron supplementation as well as ferrous sulfate 220 mg every day. She is also on folic acid 1 mg every day. The above plan of care was discussed with the patient and family members and all questions were answered. Please call us with any further questions. The patient needs to follow up in 4 weeks after discharge. cc: MD Heather Atkinson MD MTDD
[2018-09-18] MEDS: NORVASC PO SCH (14:34)
[2018-09-18] MEDS: PRINIVIL PO SCH (14:34)
[2018-09-18] MEDS ORDERED: ULTRAM PO PRN (14:42)
[2018-09-18] MEDS: VITAMIN B-12 SL SCH (17:39)
[2018-09-18] MEDS: TYLENOL PO PRN (17:39)
[2018-09-18] MEDS: PRAVACHOL PO SCH (22:17)
[2018-09-18] MEDS: DULCOLAX PR SCH (22:18)
[2018-09-18] MEDS: COLACE PO SCH (22:19)
--- NOTE | 2018-09-18 23:44 | PULMONOLOGY PROGRESS NOTE ---
DATE: 09/18/2018 SUBJECTIVE: The patient is awake, alert, and conversant. She has had 2 bowel movements today. She reports her cough is now dry. OBJECTIVE: Blood pressure 112/40, heart rate 67, respiratory rate 16, oxygen saturation 93% on room air. She has been afebrile for the last 24 hours. HEENT: Pupils are equal and reactive. Oropharynx is clear. Neck is supple. Chest reveals good air entry bilaterally with minimal crackles in the lung bases. Cardiac exam: S1, S2. Abdomen is soft, with positive bowel sounds. Extremities are without edema. IMPRESSION: 1. A 78-year-old with gastroesophageal reflux. 2. Mild aspiration pneumonia with bronchitis. 3. Hypoxemic respiratory failure. DISCUSSION: A 78-year-old with problems outlined above. This may have been triggered by a combination of GE reflux and bowel dysfunction. Clinically she continues to improve, and she now has a clear cough without rhonchi. RECOMMENDATIONS: 1. Continue strict reflux precautions. 2. Consider transitioning the patient to an oral antibiotic regimen. 3. Okay for transfer to rehab from a pulmonary standpoint. cc: Gómez Dillard MD
[2018-09-19] MEDS: ZYVOX 600 MG/D5W 600 MG/300 ML IVPB IV SCH (00:20)
[2018-09-19] MEDS: DUONEB (A & A) INH SCH ×3 (03:22→15:16)
[2018-09-19 06:18] LABS: HEMATOCRIT 25.6 % (37.0-47.0); HEMOGLOBIN 7.6 g/dL (12.0-16.0); MCH 31.5 PG (27-31); MCHC 29.7 g/dL (33-37); MCV 106.2 FL (81-99); RBC 2.41 XMIL (4.2-5.4); RDW 15.5 % (11.5-14.5); WBC 7.95 X1000 (4.8-10.8)
[2018-09-19] MEDS: PROTONIX PO SCH (06:44)
[2018-09-19 06:58] LABS: ALBUMIN 2.5 g/dL (3.5-5.0); CALCIUM 8.2 mg/dL (8.8-10.2); PHOSPHORUS 2.5 mg/dL (2.7-4.5); POTASSIUM 4.1 mmol/L (3.5-5.1)
[2018-09-19] MEDS ORDERED: SODIUM PHOSPHATE 30 MMOL in NS 250 ML IV ONE (06:59)
[2018-09-19] MEDS: MAXIPIME 2 GM in NS 100 ML IV SCH (08:18)
[2018-09-19] MEDS: MIRALAX PO SCH (08:22)
[2018-09-19] MEDS: VITAMIN B-12 SL SCH (08:24)
[2018-09-19] MEDS: PERIDEX MT SCH (08:24)
[2018-09-19] MEDS: LASIX PO SCH (08:24)
[2018-09-19] MEDS: ELIQUIS PO SCH (08:24)
[2018-09-19] MEDS: FOLIC ACID PO SCH (08:24)
[2018-09-19] MEDS: CORDARONE PO SCH (08:24)
[2018-09-19] MEDS: FERROUS SULFATE PO SCH (08:24)
--- NOTE | 2018-09-19 09:07 | ECHO REPORT ---
ORDER DATE: 09/18/2018 INDICATION: Evaluate for pericardial effusion. FINDINGS: This is a limited study with only 2-dimensional images obtained: 1. There is an echo-free space which appears more consistent with pericardial fat. I do not see any clear evidence of pericardial effusion. 2. Normal ejection fraction with an estimated EF of around 60%. 3. Normal RV size and systolic function. 4. Normal LV size. No evidence of left ventricular hypertrophy. 5. No mitral valve prolapse. Aortic valve appears to open well. 6. The left atrium appears moderately enlarged at 5 cm. cc: MD Margaret Almanza MD
--- NOTE | 2018-09-19 10:04 | Diag Imaging Result Doc PS360 ---
EXAM: ABDOMEN FLAT/UPRIGHT INDICATION: ileus TECHNIQUE: 2 views COMPARISON: 09/18/2018 FINDINGS: Overall, the gaseous distention of the colon has worsened involving more of the colon. There is also worse gaseous distention of the transverse colon. However, there is still no evidence of significant small bowel distention. No large volume free abdominal gas is appreciated. The abdomen is grossly stable, otherwise. IMPRESSION: Worsening gaseous distention of the colon as described. Electronically signed by Waylon Greene 09/19/2018 10:02 AM
[2018-09-19] MEDS ORDERED: NS 500 ML IV SCH (11:00)
[2018-09-19] MEDS: PRINIVIL PO SCH (12:05)
[2018-09-19] MEDS: LACTULOSE PO SCH (12:05)
[2018-09-19] MEDS: NORVASC PO SCH (12:05)
--- NOTE | 2018-09-19 12:31 | DISCHARGE SUMMARY ---
ADMISSION DATE: 09/12/2018 DISCHARGE DATE: 09/19/2018 FINAL DISCHARGE DIAGNOSES: 1. Status post right trochanteric femoral nailing. 2. Acute bronchitis. 3. Colonic ileus. 4. Metabolic encephalopathy. 5. Atrial fibrillation. 6. Iron deficiency anemia. 7. Hyponatremia. 8. Acute kidney injury. 9. Hypophosphatemia. 10. B12 deficiency. 11. Folate deficiency. 12. Severe protein calorie malnutrition. 13. Constipation IMAGIN. Computed tomography of the head and cervical spine performed on 09/12/2018, which revealed multilevel degenerative arthropathy. No intracranial pathology. 2. Abdominal ultrasound performed on 09/13/2018 that revealed an unremarkable right upper quadrant ultrasound. 3. Computed tomography of the abdomen and pelvis performed on 09/14/2018 that revealed trace bilateral pleural effusions. Ascites. Gastric distention with gallbladder sludge. Anasarca. 4. Echocardiogram performed on 09/15/2018 that revealed an ejection fraction of 60% with severe pulmonary hypertension. 5. Computed tomography of the chest performed on 09/17/2018 that revealed new patchy and nodular opacities bilaterally. Cardiomegaly. Constipation. 6. Abdominal x-ray performed on 09/18/2018 that revealed cecum and ascending colon dilatation. CONSULTATIONS: 1. Orthopedic consultation with Dr. Medina. 2. General Surgery consultation with Dr. Forde. 3. Gastroenterology consultation with Dr. Brand. 4. Neurology consultation with 5. Pulmonary consultation with Dr. Dillard. PROCEDURES: Right trochanteric femoral nailing performed on 09/13/2018. HOSPITAL COURSE: Ms. Carlton is a 78-year-old female with a history of multiple medical problems who initially presented to the ER after suffering a fall at home. She complained of right hip pain on admission. A hip and pelvis x-ray was done that revealed an intertrochanteric fracture of the right femur. The patient was admitted to the Hospitalist Service and Orthopedic Surgery was consulted. The following day the patient was taken to the OR at which time a right trochanteric femoral nailing was performed. Following the procedure, the patient was noted to be hypoxic and was placed on supplemental oxygen and bronchodilator therapy. The patient was noted to have an elevated lipase, and so an abdominal ultrasound was done that was noted to be unremarkable. General Surgery was consulted as well as GI. The patient also had difficulty with having a bowel movement and so imaging was performed, which revealed a colonic ileus. The patient was started on multiple laxatives and finally had good results, and was able to have a bowel movement. A CT of the chest was done that revealed an infiltrative process, as a result the patient was started on IV antibiotics. With the initiation of the antibiotics the patient's respiratory status improved. The patient did have a period of confusion, which was thought to be secondary to a combination of the anesthesia and the bronchitis that was diagnosed. As the patient continued with the antibiotic treatment, her mental status improved. The patient was also assessed by the web specialist at that time. The patient was noted to be iron deficient, and was started on iron replacement. She also has a B12 deficiency and folate deficiency, all of which resulted in supplementation being ordered. The patient does have atrial fibrillation and is on Eliquis for anticoagulation. The patient continued to improve clinically, and was ultimately cleared for discharge to inpatient rehabilitation on 09/19/2018. DISCHARGE MEDICATIONS: 1. Colace 200 mg oral at bedtime. 2. Augmentin 875/125 one tab oral twice a day x6 days. 3. Lasix 40 mg p.o. daily. 4. MiraLAX 17 g oral twice a day. 5. Oxy-IR 5 mg oral every 6 hours p.r.n. 6. Protonix 40 mg p.o. daily. 7. Vitamin B12 2500 mcg sublingual daily. 8. Folic acid 1 mg oral daily. 9. DuoNeb 3 mL inhaled every 6 hours p.r.n. for shortness of breath. 10. Lisinopril 20 mg p.o. daily. 11. Norvasc 10 mg p.o. daily. 12. Eliquis 5 mg p.o. twice a day. 13. Amiodarone 200 mg oral daily. 14. Paxil 10 mg p.o. daily. 15. Lisinopril 20 mg p.o. daily. DISCHARGE DIET: Low-sodium low-cholesterol diet. ACTIVITY: As tolerated. FOLLOWUP INSTRUCTIONS: The patient will need to follow up with Dr. Medina in 7 days. The patient will need to follow up with her primary care physician, Dr. Heather Orta within 1 week of discharge from inpatient rehabilitation. The patient will need to follow up with Dr. Brand in 4 weeks for an outpatient colonoscopy. cc: Margaret Palma MD MTDD
[2018-09-19 16:01] VITALS: BP 120/43
--- NOTE | 2018-09-19 18:07 | PROVIDER PROGRESS NOTE ---
Progress Note SUBJECTIVE: No acute overnight events. Large nonbloody BM this morning. No N/V/F, CP, SOB. Tolerating diet. OBJECTIVE: Last Vital Signs Temp 98.2 F 09/19/18 16:00 Pulse 67 09/19/18 16:00 Resp 22 09/19/18 16:00 BP 120/43 09/19/18 16:00 Pulse Ox 100 09/19/18 16:00 Height 5 ft 2 in Weight 164 lb 2 oz GEN: awake, alert, NAD HEENT: anicteric, MMM NECK: supple, no jvd CV: RRR, no murmurs PULM: CTAB, no wheezing ABD: mild distension, tympanic, BS present, NT EXT: no cce NEURO: nonfocal LABS: 09/19/18 09/19/18 05:30 05:30 WBC 7.95 Hgb 7.6 L Plt Count 217 Sodium 134 L Potassium 4.1 D Chloride 103 Carbon Dioxide 21 L BUN 17 Creatinine 1.0 H Albumin 2.5 L A/P Ms. Roseline Kirk is a 78 year old woman with HTN, HLD, GERD, CKD, Afib on Eliquis who was admitted with right hip fracture s/p repair on 09/13 who presented to the GI service with colon ileus on imaging. Constipation improved with bowel regimen. Abdominal exam is benign other than tympany. No obstructive symptoms. She has acute on chronic anemia that is being addressed by primary team. #Colonic ileus: minimize narcotics, continue bowel regimen, correct lytes, PT/OT #Constipation: plan as above #Elevated lipase: improved; patient clinically does not have pancreatitis; LFTs unremarkable #Right hip fracture s/p repair: post-surgical mgmt as per surgery #GERD: continue PPI #Anemia: acute on chronic; post-surgical; will need outpatient colonoscopy when acute issues resolve #Afib: on Eliquis and amiodarone #Perianal discomfort: suspect 2/2 hemorrhoids vs anal fissure in setting of constipation:improved; cont hydrocortisone cream BID Patient is ok to be discharged from a GI perspective with outpatient follow-up
--- NOTE | 2018-09-19 22:46 | PULMONOLOGY PROGRESS NOTE ---
DATE: 09/19/2018 SUBJECTIVE: The patient is awake, alert, and conversant. She reports she is feeling well. She denies cough or sputum production. She denies abdominal tenderness. OBJECTIVE: Vital Signs: The patient has been afebrile for the last 24 hours. Blood pressure 119/48, heart rate 64, respiratory rate 18, oxygen saturation 100% on 2 L nasal cannula. HEENT: Pupils are equal and reactive. Oropharynx is clear. Neck: Supple. Chest: Reveals good air entry bilaterally without wheezing or rhonchi. Cardiac: S1-S2. Abdomen: Reveals mild tympany. Extremities: Without edema. IMPRESSION: A 78-year-old with 1. Gastroesophageal reflux disease. 2. Mild aspiration pneumonia and bronchitis. 3. Mild hypoxemic respiratory failure. RECOMMENDATIONS: 1. Continue strict reflux precautions. 2. Again anticipate transfer to rehab. 3. Complete oral antibiotics. cc: Gómez Dillard MD
--- NOTE | 2018-09-22 11:05 | Extremity Venous Study ---
PROCEDURE NAME: Venous U/S Bilateral Legs - 09/17/2018 The patient has bilateral edema. Bilateral lower extremity venous images accomplished. The common femoral, superficial femoral, deep femoral, popliteal, posterior tibial, peroneal, and greater saphenous are imaged bilaterally. Doppler was used to evaluate the veins for spontaneity, phasicity, respiratory excursion, and distal augmentation. All veins are compressible. No intraluminal clot is seen. INTERPRETATION: No evidence of deep or superficial venous thrombosis in either lower extremity in the veins identified. cc: MD Margaret Ayala MD
== END 2018-09-19 17:40 | DRG 480 ==
LOC: SUPCPDRO → ED 11:19 → SUATTDRO 16:01 → 4N 16:01
PROVIDERS: ATTEND Internal Medicine
CPT/HCPCS: 36430; 51702; 70450; 71010; 71045; 71250; 72125; 73502; 74019; 74020; 74177; 76000; 76705; 80048; 80053; 80069; 80076; 81001; 82150; 82550; 82607; 82728; 82746; 82805; 83540; 83550; 83690; 83735; 83880; 83935; 84100; 84145; 84295; 84300; 84443; 84478; 84484; 85025; 85027; 85045; 85610; 85730; 86850; 86900; 86901; 86920; 87040; 93005; 93306; 93308; 93970; 94640; 94761; 96374; 96375; 96376; 97110; 97162; 97530; 99285; A9270; J0131; J0690; J0692; J0696; J1650; J1940; J2020; J2270; J2405; J3010; J3480; J7030; J7040; J7050; P9016; Q9967